=== PATIENT | male | born 1955 | race Caucasian/White ===

== ENCOUNTER 2016-08-13 11:01 | Inpatient (IN) | payer OTHER ==
[2016-08-13 11:17] VITALS: BMI 27.7
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
[2016-08-13] MEDS ORDERED: ACETAMINOPHEN 325 MG TABLET (FP) PO PRN (15:01)
[2016-08-13] MEDS ORDERED: MAG HYDROX/AL HYDROX/SIMETH 30 ML UNIT-DOSE CUP PO PRN (15:01)
[2016-08-13] MEDS ORDERED: NICOTINE POLACRILEX 2 MG GUM BUC PRN (15:01)
[2016-08-13] MEDS ORDERED: MAGNESIUM HYDROX 2400MG/30ML ORAL SUSPENSION 30 ML CUP PO PRN (15:01)
[2016-08-13] MEDS ORDERED: LOPERAMIDE HCL 2 MG CAPSULE PO PRN (15:01)
[2016-08-13] MEDS ORDERED: MENTHOL/PHENOL 1 EACH UD MM PRN (15:01)
[2016-08-13] MEDS ORDERED: diphenhydrAMINE HCL 50 MG CAPSULE PO PRN (15:01)
[2016-08-13] MEDS ORDERED: hydrOXYzine PAMOATE 25 MG CAPSULE (FP) PO PRN (15:01)
[2016-08-13] MEDS ORDERED: P-EPHED 60MG/TRIPROLIDI 2.5MG TABLET PO PRN (15:01)
[2016-08-13] MEDS ORDERED: MAGNESIUM CITRATE 300 ML BOTTLE PO PRN (15:01)
[2016-08-13] MEDS ORDERED: IBUPROFEN 400 MG TABLET (FP) PO PRN (15:01)
[2016-08-13] MEDS ORDERED: guaiFENesin/D-METHORPHAN HB 10 ML UNIT-DOSE CUPS PO PRN (15:01)
[2016-08-13 19:40] LABS: URINE APPEARANCE CLEAR; URINE BILIRUBIN NEGATIVE (NEGATIVE); URINE BLOOD NEGATIVE (NEGATIVE); URINE COLOR COLORLESS; URINE GLUCOSE (UA) NEGATIVE (NEGATIVE); URINE KETONE NEGATIVE (NEGATIVE); URINE LEUK ESTERASE NEGATIVE (NEGATIVE); URINE NITRITE NEGATIVE (NEGATIVE); URINE PROTEIN NEGATIVE (NEGATIVE); URINE UROBILINOGEN NEGATIVE E.U./dl (0.2-1.0)
[2016-08-13 19:41] LABS: MCH 32.2 pg (25.7-33.7); MCHC 33.8 g/dl (32.0-35.9); MEAN CELL VOLUME 95.1 fl (80-96); MEAN PLT VOLUME 8.3 fl (7.5-11.1); PLATELET COUNT 232 K/MM3 (134-434); RDW 14.6 % (11.9-15.9); WHITE BLOOD COUNT 4.9 K/mm3 (4.0-10.0)
[2016-08-13 19:56] LABS: ALBUMIN 4.4 g/dl (3.4-5.0); ANION GAP 10 (8-16); CALCIUM 8.5 mg/dL (8.5-10.1); CO2 26 mmol/L (21-32); CREATININE 1.1 mg/dL (0.7-1.3); GLUCOSE,RANDOM 101 mg/dL (74-106); SGOT/AST 18 U/L (15-37); SGPT/ALT 19 U/L (12-78)
[2016-08-13 19:57] LABS: ALK PHOS 115 U/L (45-117); TOT PROT 6.9 g/dl (6.4-8.2)
[2016-08-13] MEDS: PATIENT'S OWN MEDICATION (NON-FORMULARY) (Pravastatin Sodium 40 MG) PO SCH (21:35)
[2016-08-13] MEDS: THIAMINE HCL 100 MG TABLET (FP) PO SCH (21:35)
[2016-08-13] MEDS: QUEtiapine FUMARATE 25 MG TABLET (FP) PO SCH (21:36)
[2016-08-13] MEDS: GEMFIBROZIL 600 MG TABLET (FP) PO SCH (21:36)
[2016-08-13] MEDS: NAPROXEN 500 MG TABLET (FP) PO SCH (21:37)
[2016-08-14] MEDS ORDERED: METHADONE HCL 10 MG TABLET ONE (04:05)
[2016-08-14] MEDS ORDERED: METHADONE HCL 40 MG DISPERSABLE TABLET ONE (04:05)
[2016-08-14] MEDS ORDERED: METHADONE HCL 5 MG TABLET ONE (04:06)
[2016-08-14] MEDS ORDERED: METHADONE HCL 10 MG TABLET PO SCH (06:00)
[2016-08-14] MEDS: METHADONE 40 MG, METHADONE 10 MG, METHADONE 5 MG PO SCH (06:26)
--- NOTE | 2016-08-14 06:38 | HP ---
Psychiatrist Admission - Data Date of interview: 08/14/16 Admission source: [facility] Identifying data: This is the first [facility] admission for this 60 years old male, unemployed on public assistance, homeless Medical History: Significant for Asthma, Hyperlipidemia, Seizure Disorder and S/ P skin graft for plastic surgery of face. Patient is on methadone 55 mg/day. Smokes 5 cigarettes daily Psychiatric History: Reports being diagnosed with Bipolar Disorder 7-8 years ago. Reports 3 previous psychiatric admissions to [facility] in 1998, [facility] in 2006- and most recenly in 2013 to [facility]. Reports that he currently sees a psychiatrist at [facility] and he isprescribed Zoloft 50 mg po daily & Seroquel 25 mg po HS. Denies history of SI/HI. At present, reports feeling depressed because he is in this place. Denies experiencing psychotic, manic symptoms as well as SI/HI Physical/Sexual Abuse/Trauma History: Denies history of emotional, physical or sexual abuse as well as DV relationship Additional Comment: Reports history of multiple arrests including 3 felony convictions. Denies being on parole/probation at present Vital Signs: Vital Signs - 24 hr 08/13/16 08/14/16 08/14/16 11:14 00:30 03:30 Temperature 98.1 F Pulse Rate 73 Respiratory 18 20 20 Rate Blood Pressure 132/75 Allergies/Adverse Reactions: Allergies Allergy/AdvReac Type Severity Reaction Status Date / Time egg Allergy Severe Hives Verified 08/13/16 12:04 No Known Drug Allergies Allergy Verified 08/13/16 17:03 NKDA Allergy Uncoded 08/13/16 12:04 Date of last physical exam: 08/13/16 Concur with the findings of this exam: Yes - Substance Abuse/Tx History Hx Alcohol Use: No Hx Substance Use: Yes Substance Use Type: Opiates (Started using morphine at age 15, consumes 20 mg daily. Last used on 08/12/16) Hx Substance Use Treatment: Yes (One previous inpt detox @ [facility]. Attends [facility] currently) - Admission Criteria Previous failed treatment: No Poor recovery environment: Yes Comorbidities: Yes Lacks judgement: Yes Mental Status Exam - Mental Status Exam Alert and Oriented to: Time, Place, Person Cognitive Function: Fair Patient Appearance: Well Groomed Mood: Depressed Affect: Normal Range Patient Behavior: Cooperative Speech Pattern: Clear Voice Loudness: Normal Thought Process: Intact Thought Disorder: Not Present Hallucinations: Denies Suicidal Ideation: Denies Homicidal Ideation: Denies Insight/Judgement: Fair Sleep: Poorly Appetite: Good Muscle strength/Tone: Normal Gait/Station: Normal Psychiatric Findings - Problem List ([place] 1, 2,3) (1) Opioid dependence Current Visit: Yes Status: Acute (2) Bipolar I disorder, most recent episode (or current) mixed, in partial or unspecified remission Current Visit: No Status: Acute (3) Nicotine dependence Current Visit: Yes Status: Acute (4) Opioid dependence on agonist therapy Current Visit: Yes Status: Acute (5) History of chronic pain Current Visit: Yes Status: Chronic (6) Hypercholesterolemia Current Visit: Yes Status: Chronic - Initial Treatment Plan Initial Treatment Plan: 1) Continue Zoloft 50 mg po daily & Seroquel 25 mg po HS. 2) Monitor progress
[2016-08-14] MEDS ORDERED: PT OWN MED DRAWER 7, Y5N ONE ×4 (08:55→23:05)
--- NOTE | 2016-08-14 10:11 | EKG ---
Test Reason : Blood Pressure : / mmHG Vent. Rate : 067 BPM Atrial Rate : 067 BPM P-R Int : 158 ms QRS Dur : 082 ms QT Int : 392 ms P-R-T Axes : 046 028 036 degrees QTc Int : 414 ms NORMAL SINUS RHYTHM POSSIBLE LEFT ATRIAL ENLARGEMENT BORDERLINE ECG NO PREVIOUS ECGS AVAILABLE Confirmed by SHU BOWIE, CARA ([id number]) on 08/14/2016 10:10:53 AM Referred By: Benjamín Terry Confirmed By:CARA IRELAND MD
[2016-08-14] MEDS: PRENATAL VITAMINS W/ FOLIC ACID TABLET (FP) PO SCH (10:15)
[2016-08-14] MEDS: NAPROXEN 500 MG TABLET (FP) PO SCH ×2 (10:15→22:50)
[2016-08-14] MEDS: GEMFIBROZIL 600 MG TABLET (FP) PO SCH ×2 (10:15→22:50)
[2016-08-14] MEDS: SERTRALINE HCL 50 MG TABLET (FP) PO SCH (10:15)
[2016-08-14] MEDS: NICOTINE 14 MG/24 HOURS TOPICAL PATCH TD SCH (10:15)
[2016-08-14 12:14] LABS: HIV 1 & 2 AB NEGATIVE; HIV 1 AGp24 NEGATIVE
[2016-08-14] MEDS ORDERED: BISACODYL 5 MG TABLET.DR (FP) PO ONE ×2 (14:56→16:00)
[2016-08-14] MEDS: ACETAMINOPHEN 500 MG TABLET (FP) PO PRN ×2 (15:57→21:44)
[2016-08-14] MEDS: ALBUTEROL SO4 6.7 GM HFA INHALER IH PRN (17:54)
[2016-08-14] MEDS: THIAMINE HCL 100 MG TABLET (FP) PO SCH (21:42)
[2016-08-14] MEDS: QUEtiapine FUMARATE 25 MG TABLET (FP) PO SCH (22:50)
[2016-08-14] MEDS: PATIENT'S OWN MEDICATION (NON-FORMULARY) (Pravastatin Sodium 40 MG) PO SCH (22:50)
[2016-08-15] MEDS ORDERED: METHADONE HCL 10 MG TABLET ONE (04:01)
[2016-08-15] MEDS ORDERED: METHADONE HCL 40 MG DISPERSABLE TABLET ONE (04:02)
[2016-08-15] MEDS ORDERED: METHADONE HCL 5 MG TABLET ONE (04:02)
[2016-08-15] MEDS: METHADONE 40 MG, METHADONE 10 MG, METHADONE 5 MG PO SCH (06:19)
[2016-08-15] MEDS: ACETAMINOPHEN 500 MG TABLET (FP) PO PRN ×3 (07:52→21:09)
[2016-08-15] MEDS ORDERED: PT OWN MED DRAWER 7, Y5N ONE ×5 (08:42→21:09)
[2016-08-15] MEDS: GEMFIBROZIL 600 MG TABLET (FP) PO SCH ×2 (09:48→22:44)
[2016-08-15] MEDS: SERTRALINE HCL 50 MG TABLET (FP) PO SCH (09:48)
[2016-08-15] MEDS: NAPROXEN 500 MG TABLET (FP) PO SCH ×2 (09:48→21:09)
[2016-08-15] MEDS: PRENATAL VITAMINS W/ FOLIC ACID TABLET (FP) PO SCH (09:48)
[2016-08-15] MEDS: FERROUS SO4 325 MG TABLET (FP) PO SCH (09:48)
[2016-08-15] MEDS: NICOTINE 14 MG/24 HOURS TOPICAL PATCH TD SCH (09:50)
[2016-08-15] MEDS: THIAMINE HCL 100 MG TABLET (FP) PO SCH (21:09)
[2016-08-15] MEDS: PATIENT'S OWN MEDICATION (NON-FORMULARY) (Pravastatin Sodium 40 MG) PO SCH (22:45)
[2016-08-15] MEDS: QUEtiapine FUMARATE 25 MG TABLET (FP) PO SCH (22:45)
[2016-08-16] MEDS ORDERED: METHADONE HCL 40 MG DISPERSABLE TABLET ONE (04:03)
[2016-08-16] MEDS ORDERED: METHADONE HCL 10 MG TABLET ONE (04:03)
[2016-08-16] MEDS ORDERED: METHADONE HCL 5 MG TABLET ONE (04:03)
[2016-08-16] MEDS: ACETAMINOPHEN 500 MG TABLET (FP) PO PRN ×2 (06:04→21:02)
[2016-08-16] MEDS: METHADONE 40 MG, METHADONE 10 MG, METHADONE 5 MG PO SCH (06:05)
[2016-08-16] MEDS: PRENATAL VITAMINS W/ FOLIC ACID TABLET (FP) PO SCH (09:49)
[2016-08-16] MEDS: NAPROXEN 500 MG TABLET (FP) PO SCH ×2 (09:49→21:02)
[2016-08-16] MEDS: SERTRALINE HCL 50 MG TABLET (FP) PO SCH (09:49)
[2016-08-16] MEDS: FERROUS SO4 325 MG TABLET (FP) PO SCH (09:49)
[2016-08-16] MEDS: GEMFIBROZIL 600 MG TABLET (FP) PO SCH ×2 (09:50→21:02)
[2016-08-16] MEDS: NICOTINE 14 MG/24 HOURS TOPICAL PATCH TD SCH (09:51)
[2016-08-16] MEDS: ALBUTEROL SO4 6.7 GM HFA INHALER IH PRN (09:52)
[2016-08-16] MEDS ORDERED: PT OWN MED DRAWER 7, Y5N ONE ×2 (09:52→19:15)
[2016-08-16] MEDS: HYDROCORTISONE 2.5% TOPICAL CREAM 30 GM TUBE TP SCH ×2 (16:45→21:02)
[2016-08-16] MEDS: PATIENT'S OWN MEDICATION (NON-FORMULARY) (Pravastatin Sodium 40 MG) PO SCH (21:02)
[2016-08-16] MEDS: THIAMINE HCL 100 MG TABLET (FP) PO SCH (21:02)
[2016-08-16] MEDS: QUEtiapine FUMARATE 25 MG TABLET (FP) PO SCH (21:03)
[2016-08-17] MEDS ORDERED: METHADONE HCL 10 MG TABLET ONE (05:40)
[2016-08-17] MEDS ORDERED: METHADONE HCL 5 MG TABLET ONE (05:40)
[2016-08-17] MEDS ORDERED: METHADONE HCL 40 MG DISPERSABLE TABLET ONE (05:40)
[2016-08-17] MEDS: ACETAMINOPHEN 500 MG TABLET (FP) PO PRN ×3 (06:52→21:48)
[2016-08-17] MEDS: METHADONE 40 MG, METHADONE 10 MG, METHADONE 5 MG PO SCH (06:52)
[2016-08-17] MEDS ORDERED: PT OWN MED DRAWER 7, Y5N ONE ×2 (08:51→21:47)
[2016-08-17] MEDS: HYDROCORTISONE 2.5% TOPICAL CREAM 30 GM TUBE TP SCH ×2 (09:38→21:49)
[2016-08-17] MEDS: PRENATAL VITAMINS W/ FOLIC ACID TABLET (FP) PO SCH (09:38)
[2016-08-17] MEDS: NICOTINE 14 MG/24 HOURS TOPICAL PATCH TD SCH (09:38)
[2016-08-17] MEDS: NAPROXEN 500 MG TABLET (FP) PO SCH ×2 (09:39→21:47)
[2016-08-17] MEDS: SERTRALINE HCL 50 MG TABLET (FP) PO SCH (09:39)
[2016-08-17] MEDS: GEMFIBROZIL 600 MG TABLET (FP) PO SCH ×2 (09:40→21:46)
[2016-08-17] MEDS: FERROUS SO4 325 MG TABLET (FP) PO SCH (09:41)
[2016-08-17] MEDS: QUEtiapine FUMARATE 25 MG TABLET (FP) PO SCH (21:47)
[2016-08-17] MEDS: PATIENT'S OWN MEDICATION (NON-FORMULARY) (Pravastatin Sodium 40 MG) PO SCH (21:47)
[2016-08-17] MEDS: THIAMINE HCL 100 MG TABLET (FP) PO SCH (21:49)
[2016-08-18] MEDS ORDERED: METHADONE HCL 5 MG TABLET ONE (05:28)
[2016-08-18] MEDS ORDERED: METHADONE HCL 10 MG TABLET ONE (05:28)
[2016-08-18] MEDS ORDERED: METHADONE HCL 40 MG DISPERSABLE TABLET ONE (05:28)
[2016-08-18] MEDS: ACETAMINOPHEN 500 MG TABLET (FP) PO PRN ×3 (06:38→21:25)
[2016-08-18] MEDS: METHADONE 40 MG, METHADONE 10 MG, METHADONE 5 MG PO SCH (06:38)
[2016-08-18] MEDS ORDERED: PT OWN MED DRAWER 7, Y5N ONE ×3 (07:01→21:25)
[2016-08-18] MEDS: PRENATAL VITAMINS W/ FOLIC ACID TABLET (FP) PO SCH (09:51)
[2016-08-18] MEDS: GEMFIBROZIL 600 MG TABLET (FP) PO SCH ×2 (09:51→21:23)
[2016-08-18] MEDS: FERROUS SO4 325 MG TABLET (FP) PO SCH (09:51)
[2016-08-18] MEDS: NICOTINE 14 MG/24 HOURS TOPICAL PATCH TD SCH (09:52)
[2016-08-18] MEDS: SERTRALINE HCL 50 MG TABLET (FP) PO SCH (09:52)
[2016-08-18] MEDS: HYDROCORTISONE 2.5% TOPICAL CREAM 30 GM TUBE TP SCH ×2 (09:52→22:46)
[2016-08-18] MEDS: NAPROXEN 500 MG TABLET (FP) PO SCH ×2 (09:52→21:23)
[2016-08-18] MEDS: PATIENT'S OWN MEDICATION (NON-FORMULARY) (Pravastatin Sodium 40 MG) PO SCH (21:24)
[2016-08-18] MEDS: QUEtiapine FUMARATE 25 MG TABLET (FP) PO SCH (21:24)
[2016-08-18] MEDS: THIAMINE HCL 100 MG TABLET (FP) PO SCH (21:24)
[2016-08-19] MEDS ORDERED: METHADONE HCL 10 MG TABLET ONE (05:17)
[2016-08-19] MEDS ORDERED: METHADONE HCL 40 MG DISPERSABLE TABLET ONE (05:18)
[2016-08-19] MEDS ORDERED: METHADONE HCL 5 MG TABLET ONE (05:18)
[2016-08-19] MEDS: ACETAMINOPHEN 500 MG TABLET (FP) PO PRN ×2 (06:29→22:27)
[2016-08-19] MEDS: METHADONE 40 MG, METHADONE 10 MG, METHADONE 5 MG PO SCH (06:30)
[2016-08-19] MEDS ORDERED: PT OWN MED DRAWER 7, Y5N ONE ×3 (08:39→20:12)
[2016-08-19] MEDS: FERROUS SO4 325 MG TABLET (FP) PO SCH (09:54)
[2016-08-19] MEDS: SERTRALINE HCL 50 MG TABLET (FP) PO SCH (09:54)
[2016-08-19] MEDS: PRENATAL VITAMINS W/ FOLIC ACID TABLET (FP) PO SCH (09:54)
[2016-08-19] MEDS: NAPROXEN 500 MG TABLET (FP) PO SCH ×2 (09:54→22:28)
[2016-08-19] MEDS: NICOTINE 14 MG/24 HOURS TOPICAL PATCH TD SCH (09:55)
[2016-08-19] MEDS: GEMFIBROZIL 600 MG TABLET (FP) PO SCH ×2 (09:55→22:27)
[2016-08-19] MEDS: HYDROCORTISONE 2.5% TOPICAL CREAM 30 GM TUBE TP SCH ×2 (09:56→23:58)
[2016-08-19] MEDS: DOCUSATE SODIUM 100 MG CAPSULE (FP) PO PRN (22:27)
[2016-08-19] MEDS: THIAMINE HCL 100 MG TABLET (FP) PO SCH (22:28)
[2016-08-19] MEDS: QUEtiapine FUMARATE 25 MG TABLET (FP) PO SCH (22:28)
[2016-08-19] MEDS: PATIENT'S OWN MEDICATION (NON-FORMULARY) (Pravastatin Sodium 40 MG) PO SCH (22:28)
[2016-08-20] MEDS ORDERED: METHADONE HCL 40 MG DISPERSABLE TABLET ONE (04:12)
[2016-08-20] MEDS ORDERED: METHADONE HCL 10 MG TABLET ONE (04:12)
[2016-08-20] MEDS ORDERED: METHADONE HCL 5 MG TABLET ONE (04:12)
[2016-08-20] MEDS: METHADONE 40 MG, METHADONE 10 MG, METHADONE 5 MG PO SCH (06:03)
[2016-08-20] MEDS ORDERED: PT OWN MED DRAWER 7, Y5N ONE ×3 (08:52→21:30)
[2016-08-20] MEDS: ACETAMINOPHEN 500 MG TABLET (FP) PO PRN ×2 (09:58→20:36)
[2016-08-20] MEDS: PRENATAL VITAMINS W/ FOLIC ACID TABLET (FP) PO SCH (09:59)
[2016-08-20] MEDS: SERTRALINE HCL 50 MG TABLET (FP) PO SCH (10:00)
[2016-08-20] MEDS: FERROUS SO4 325 MG TABLET (FP) PO SCH (10:00)
[2016-08-20] MEDS: HYDROCORTISONE 2.5% TOPICAL CREAM 30 GM TUBE TP SCH ×2 (10:00→22:47)
[2016-08-20] MEDS: NAPROXEN 500 MG TABLET (FP) PO SCH ×2 (10:01→21:29)
[2016-08-20] MEDS: GEMFIBROZIL 600 MG TABLET (FP) PO SCH ×2 (10:01→21:29)
[2016-08-20] MEDS: NICOTINE 14 MG/24 HOURS TOPICAL PATCH TD SCH (10:03)
[2016-08-20] MEDS: ALBUTEROL SO4 6.7 GM HFA INHALER IH PRN (10:04)
[2016-08-20] MEDS: QUEtiapine FUMARATE 25 MG TABLET (FP) PO SCH (21:29)
[2016-08-20] MEDS: PATIENT'S OWN MEDICATION (NON-FORMULARY) (Pravastatin Sodium 40 MG) PO SCH (21:29)
[2016-08-20] MEDS: THIAMINE HCL 100 MG TABLET (FP) PO SCH (21:30)
[2016-08-21] MEDS ORDERED: METHADONE HCL 10 MG TABLET ONE (04:03)
[2016-08-21] MEDS ORDERED: METHADONE HCL 5 MG TABLET ONE (04:03)
[2016-08-21] MEDS ORDERED: METHADONE HCL 40 MG DISPERSABLE TABLET ONE (04:03)
[2016-08-21] MEDS: METHADONE 40 MG, METHADONE 10 MG, METHADONE 5 MG PO SCH (05:58)
[2016-08-21] MEDS: ACETAMINOPHEN 500 MG TABLET (FP) PO PRN ×2 (06:13→21:17)
[2016-08-21] MEDS: ALBUTEROL SO4 6.7 GM HFA INHALER IH PRN (06:14)
[2016-08-21] MEDS ORDERED: PT OWN MED DRAWER 7, Y5N ONE ×2 (08:45→21:17)
[2016-08-21] MEDS: SERTRALINE HCL 50 MG TABLET (FP) PO SCH (09:45)
[2016-08-21] MEDS: FERROUS SO4 325 MG TABLET (FP) PO SCH (09:45)
[2016-08-21] MEDS: PRENATAL VITAMINS W/ FOLIC ACID TABLET (FP) PO SCH (09:45)
[2016-08-21] MEDS: HYDROCORTISONE 2.5% TOPICAL CREAM 30 GM TUBE TP SCH ×2 (09:45→23:17)
[2016-08-21] MEDS: GEMFIBROZIL 600 MG TABLET (FP) PO SCH ×2 (09:46→21:16)
[2016-08-21] MEDS: NAPROXEN 500 MG TABLET (FP) PO SCH ×2 (09:46→21:16)
[2016-08-21] MEDS: NICOTINE 14 MG/24 HOURS TOPICAL PATCH TD SCH (10:27)
[2016-08-21] MEDS: PATIENT'S OWN MEDICATION (NON-FORMULARY) (Pravastatin Sodium 40 MG) PO SCH (21:16)
[2016-08-21] MEDS: QUEtiapine FUMARATE 25 MG TABLET (FP) PO SCH (21:17)
[2016-08-21] MEDS: THIAMINE HCL 100 MG TABLET (FP) PO SCH (21:17)
[2016-08-22] MEDS ORDERED: METHADONE HCL 40 MG DISPERSABLE TABLET ONE (03:20)
[2016-08-22] MEDS ORDERED: METHADONE HCL 10 MG TABLET ONE (03:20)
[2016-08-22] MEDS ORDERED: METHADONE HCL 5 MG TABLET ONE (03:20)
[2016-08-22] MEDS: ACETAMINOPHEN 500 MG TABLET (FP) PO PRN ×3 (06:07→21:15)
[2016-08-22] MEDS: METHADONE 40 MG, METHADONE 10 MG, METHADONE 5 MG PO SCH (06:07)
[2016-08-22] MEDS ORDERED: PT OWN MED DRAWER 7, Y5N ONE ×3 (08:27→21:17)
[2016-08-22] MEDS: FERROUS SO4 325 MG TABLET (FP) PO SCH (09:50)
[2016-08-22] MEDS: PRENATAL VITAMINS W/ FOLIC ACID TABLET (FP) PO SCH (09:50)
[2016-08-22] MEDS: NAPROXEN 500 MG TABLET (FP) PO SCH ×2 (09:50→21:16)
[2016-08-22] MEDS: HYDROCORTISONE 2.5% TOPICAL CREAM 30 GM TUBE TP SCH ×2 (09:50→21:18)
[2016-08-22] MEDS: SERTRALINE HCL 50 MG TABLET (FP) PO SCH (09:51)
[2016-08-22] MEDS: GEMFIBROZIL 600 MG TABLET (FP) PO SCH ×2 (09:51→21:16)
[2016-08-22] MEDS: NICOTINE 14 MG/24 HOURS TOPICAL PATCH TD SCH (09:51)
[2016-08-22] MEDS: THIAMINE HCL 100 MG TABLET (FP) PO SCH (21:15)
[2016-08-22] MEDS: QUEtiapine FUMARATE 25 MG TABLET (FP) PO SCH (21:16)
[2016-08-22] MEDS: PATIENT'S OWN MEDICATION (NON-FORMULARY) (Pravastatin Sodium 40 MG) PO SCH (21:16)
[2016-08-22] MEDS: DOCUSATE SODIUM 100 MG CAPSULE (FP) PO PRN (21:17)
[2016-08-22] MEDS: BACITRACIN 0.9 GM PACKET TP SCH (21:18)
[2016-08-23] MEDS ORDERED: METHADONE HCL 40 MG DISPERSABLE TABLET ONE (04:11)
[2016-08-23] MEDS ORDERED: METHADONE HCL 10 MG TABLET ONE (04:11)
[2016-08-23] MEDS ORDERED: METHADONE HCL 5 MG TABLET ONE (04:12)
[2016-08-23] MEDS: ACETAMINOPHEN 500 MG TABLET (FP) PO PRN ×2 (06:08→17:57)
[2016-08-23] MEDS: ALBUTEROL SO4 6.7 GM HFA INHALER IH PRN (06:08)
[2016-08-23] MEDS: METHADONE 40 MG, METHADONE 10 MG, METHADONE 5 MG PO SCH (06:09)
[2016-08-23] MEDS: GEMFIBROZIL 600 MG TABLET (FP) PO SCH ×2 (09:42→21:37)
[2016-08-23] MEDS: NAPROXEN 500 MG TABLET (FP) PO SCH ×2 (09:42→21:37)
[2016-08-23] MEDS: HYDROCORTISONE 2.5% TOPICAL CREAM 30 GM TUBE TP SCH ×2 (09:43→21:39)
[2016-08-23] MEDS: FERROUS SO4 325 MG TABLET (FP) PO SCH (09:43)
[2016-08-23] MEDS: SERTRALINE HCL 50 MG TABLET (FP) PO SCH (09:43)
[2016-08-23] MEDS: PRENATAL VITAMINS W/ FOLIC ACID TABLET (FP) PO SCH (09:43)
[2016-08-23] MEDS: NICOTINE 14 MG/24 HOURS TOPICAL PATCH TD SCH (09:43)
[2016-08-23] MEDS: BACITRACIN 0.9 GM PACKET TP SCH ×2 (09:43→21:38)
[2016-08-23] MEDS: THIAMINE HCL 100 MG TABLET (FP) PO SCH (21:37)
[2016-08-23] MEDS: PATIENT'S OWN MEDICATION (NON-FORMULARY) (Pravastatin Sodium 40 MG) PO SCH (21:38)
[2016-08-23] MEDS ORDERED: PT OWN MED DRAWER 7, Y5N ONE (21:38)
[2016-08-23] MEDS: QUEtiapine FUMARATE 25 MG TABLET (FP) PO SCH (21:38)
[2016-08-24] MEDS ORDERED: METHADONE HCL 40 MG DISPERSABLE TABLET ONE (04:03)
[2016-08-24] MEDS ORDERED: METHADONE HCL 10 MG TABLET ONE (04:03)
[2016-08-24] MEDS ORDERED: METHADONE HCL 5 MG TABLET ONE (04:04)
[2016-08-24] MEDS: ACETAMINOPHEN 500 MG TABLET (FP) PO PRN ×3 (06:07→21:37)
[2016-08-24] MEDS: METHADONE 40 MG, METHADONE 10 MG, METHADONE 5 MG PO SCH (06:08)
[2016-08-24] MEDS: NAPROXEN 500 MG TABLET (FP) PO SCH ×2 (09:46→21:37)
[2016-08-24] MEDS: SERTRALINE HCL 50 MG TABLET (FP) PO SCH (09:46)
[2016-08-24] MEDS: BACITRACIN 0.9 GM PACKET TP SCH ×2 (09:46→21:37)
[2016-08-24] MEDS: HYDROCORTISONE 2.5% TOPICAL CREAM 30 GM TUBE TP SCH ×2 (09:46→21:37)
[2016-08-24] MEDS: GEMFIBROZIL 600 MG TABLET (FP) PO SCH ×2 (09:46→21:36)
[2016-08-24] MEDS: PRENATAL VITAMINS W/ FOLIC ACID TABLET (FP) PO SCH (09:46)
[2016-08-24] MEDS: FERROUS SO4 325 MG TABLET (FP) PO SCH (09:46)
[2016-08-24] MEDS: DOCUSATE SODIUM 100 MG CAPSULE (FP) PO PRN (09:48)
[2016-08-24] MEDS: ALBUTEROL SO4 6.7 GM HFA INHALER IH PRN ×2 (09:49→21:39)
[2016-08-24] MEDS: NICOTINE 14 MG/24 HOURS TOPICAL PATCH TD SCH (10:33)
[2016-08-24] MEDS ORDERED: PT OWN MED DRAWER 7, Y5N ONE (19:08)
[2016-08-24] MEDS: PATIENT'S OWN MEDICATION (NON-FORMULARY) (Pravastatin Sodium 40 MG) PO SCH (21:36)
[2016-08-24] MEDS: QUEtiapine FUMARATE 25 MG TABLET (FP) PO SCH (21:36)
[2016-08-24] MEDS: THIAMINE HCL 100 MG TABLET (FP) PO SCH (21:36)
[2016-08-25] MEDS ORDERED: METHADONE HCL 10 MG TABLET ONE (04:05)
[2016-08-25] MEDS ORDERED: METHADONE HCL 40 MG DISPERSABLE TABLET ONE (04:05)
[2016-08-25] MEDS ORDERED: METHADONE HCL 5 MG TABLET ONE (04:06)
[2016-08-25] MEDS: ACETAMINOPHEN 500 MG TABLET (FP) PO PRN ×2 (06:12→21:50)
[2016-08-25] MEDS: METHADONE 40 MG, METHADONE 10 MG, METHADONE 5 MG PO SCH (06:13)
[2016-08-25] MEDS ORDERED: PT OWN MED DRAWER 7, Y5N ONE ×4 (08:42→21:51)
[2016-08-25] MEDS: ALBUTEROL SO4 6.7 GM HFA INHALER IH PRN (09:56)
[2016-08-25] MEDS: SERTRALINE HCL 50 MG TABLET (FP) PO SCH (09:56)
[2016-08-25] MEDS: HYDROCORTISONE 2.5% TOPICAL CREAM 30 GM TUBE TP SCH ×2 (09:57→21:48)
[2016-08-25] MEDS: BACITRACIN 0.9 GM PACKET TP SCH ×2 (09:57→21:48)
[2016-08-25] MEDS: FERROUS SO4 325 MG TABLET (FP) PO SCH (09:57)
[2016-08-25] MEDS: NAPROXEN 500 MG TABLET (FP) PO SCH ×2 (09:57→21:48)
[2016-08-25] MEDS: GEMFIBROZIL 600 MG TABLET (FP) PO SCH ×2 (09:57→21:49)
[2016-08-25] MEDS: PRENATAL VITAMINS W/ FOLIC ACID TABLET (FP) PO SCH (09:57)
[2016-08-25] MEDS: DOCUSATE SODIUM 100 MG CAPSULE (FP) PO PRN (09:58)
[2016-08-25] MEDS: NICOTINE 14 MG/24 HOURS TOPICAL PATCH TD SCH (09:58)
[2016-08-25] MEDS: QUEtiapine FUMARATE 25 MG TABLET (FP) PO SCH (21:48)
[2016-08-25] MEDS: THIAMINE HCL 100 MG TABLET (FP) PO SCH (21:48)
[2016-08-25] MEDS: PATIENT'S OWN MEDICATION (NON-FORMULARY) (Pravastatin Sodium 40 MG) PO SCH (21:49)
[2016-08-26] MEDS ORDERED: METHADONE HCL 40 MG DISPERSABLE TABLET ONE (05:37)
[2016-08-26] MEDS ORDERED: METHADONE HCL 5 MG TABLET ONE (05:37)
[2016-08-26] MEDS ORDERED: METHADONE HCL 10 MG TABLET ONE (05:37)
[2016-08-26] MEDS ORDERED: METHADONE HCL 10 MG TABLET PO SCH (06:00)
[2016-08-26] MEDS: ACETAMINOPHEN 500 MG TABLET (FP) PO PRN ×2 (06:47→21:34)
[2016-08-26] MEDS: METHADONE 40 MG, METHADONE 10 MG, METHADONE 5 MG PO SCH (06:47)
[2016-08-26] MEDS: FERROUS SO4 325 MG TABLET (FP) PO SCH (10:07)
[2016-08-26] MEDS: PRENATAL VITAMINS W/ FOLIC ACID TABLET (FP) PO SCH (10:07)
[2016-08-26] MEDS: NICOTINE 14 MG/24 HOURS TOPICAL PATCH TD SCH (10:07)
[2016-08-26] MEDS: SERTRALINE HCL 50 MG TABLET (FP) PO SCH (10:07)
[2016-08-26] MEDS: GEMFIBROZIL 600 MG TABLET (FP) PO SCH ×2 (10:10→17:12)
[2016-08-26] MEDS ORDERED: PT OWN MED DRAWER 7, Y5N ONE ×2 (10:11→20:31)
[2016-08-26] MEDS: NAPROXEN 500 MG TABLET (FP) PO SCH ×2 (10:12→21:34)
[2016-08-26] MEDS: HYDROCORTISONE 2.5% TOPICAL CREAM 30 GM TUBE TP SCH ×2 (10:13→21:43)
[2016-08-26] MEDS: DOCUSATE SODIUM 100 MG CAPSULE (FP) PO PRN (10:15)
[2016-08-26] MEDS: BACITRACIN 0.9 GM PACKET TP SCH ×2 (10:37→21:33)
[2016-08-26] MEDS: THIAMINE HCL 100 MG TABLET (FP) PO SCH (21:33)
[2016-08-26] MEDS: QUEtiapine FUMARATE 25 MG TABLET (FP) PO SCH (21:33)
[2016-08-26] MEDS: PATIENT'S OWN MEDICATION (NON-FORMULARY) (Pravastatin Sodium 40 MG) PO SCH (21:34)
[2016-08-27] MEDS ORDERED: METHADONE HCL 5 MG TABLET ONE (04:04)
[2016-08-27] MEDS ORDERED: METHADONE HCL 10 MG TABLET ONE (04:04)
[2016-08-27] MEDS ORDERED: METHADONE HCL 40 MG DISPERSABLE TABLET ONE (04:04)
[2016-08-27] MEDS: ACETAMINOPHEN 500 MG TABLET (FP) PO PRN ×2 (06:17→21:54)
[2016-08-27] MEDS: METHADONE 40 MG, METHADONE 10 MG, METHADONE 5 MG PO SCH (06:19)
[2016-08-27] MEDS: GEMFIBROZIL 600 MG TABLET (FP) PO SCH ×2 (06:39→17:09)
[2016-08-27] MEDS: SERTRALINE HCL 50 MG TABLET (FP) PO SCH (09:39)
[2016-08-27] MEDS: BACITRACIN 0.9 GM PACKET TP SCH ×2 (09:39→23:32)
[2016-08-27] MEDS: HYDROCORTISONE 2.5% TOPICAL CREAM 30 GM TUBE TP SCH ×2 (09:39→23:32)
[2016-08-27] MEDS: PRENATAL VITAMINS W/ FOLIC ACID TABLET (FP) PO SCH (09:39)
[2016-08-27] MEDS: FERROUS SO4 325 MG TABLET (FP) PO SCH (09:41)
[2016-08-27] MEDS: NICOTINE 14 MG/24 HOURS TOPICAL PATCH TD SCH (09:43)
[2016-08-27] MEDS: NAPROXEN 500 MG TABLET (FP) PO SCH ×2 (09:43→21:53)
[2016-08-27] MEDS ORDERED: PT OWN MED DRAWER 7, Y5N ONE ×2 (17:09→21:53)
[2016-08-27] MEDS: THIAMINE HCL 100 MG TABLET (FP) PO SCH (21:52)
[2016-08-27] MEDS: PATIENT'S OWN MEDICATION (NON-FORMULARY) (Pravastatin Sodium 40 MG) PO SCH (21:53)
[2016-08-27] MEDS: QUEtiapine FUMARATE 25 MG TABLET (FP) PO SCH (21:53)
[2016-08-28] MEDS ORDERED: METHADONE HCL 5 MG TABLET ONE (04:08)
[2016-08-28] MEDS ORDERED: METHADONE HCL 10 MG TABLET ONE (04:08)
[2016-08-28] MEDS ORDERED: METHADONE HCL 40 MG DISPERSABLE TABLET ONE (04:08)
[2016-08-28] MEDS: ACETAMINOPHEN 500 MG TABLET (FP) PO PRN (06:27)
[2016-08-28] MEDS: METHADONE 40 MG, METHADONE 10 MG, METHADONE 5 MG PO SCH (06:29)
[2016-08-28] MEDS: GEMFIBROZIL 600 MG TABLET (FP) PO SCH ×2 (07:00→16:58)
[2016-08-28] MEDS: BACITRACIN 0.9 GM PACKET TP SCH ×2 (09:51→21:52)
[2016-08-28] MEDS: PRENATAL VITAMINS W/ FOLIC ACID TABLET (FP) PO SCH (09:51)
[2016-08-28] MEDS: FERROUS SO4 325 MG TABLET (FP) PO SCH (09:51)
[2016-08-28] MEDS: SERTRALINE HCL 50 MG TABLET (FP) PO SCH (09:51)
[2016-08-28] MEDS: NAPROXEN 500 MG TABLET (FP) PO SCH ×2 (09:52→21:51)
[2016-08-28] MEDS: NICOTINE 14 MG/24 HOURS TOPICAL PATCH TD SCH (09:52)
[2016-08-28] MEDS: HYDROCORTISONE 2.5% TOPICAL CREAM 30 GM TUBE TP SCH ×2 (09:53→22:27)
[2016-08-28] MEDS: DOCUSATE SODIUM 100 MG CAPSULE (FP) PO PRN (10:42)
[2016-08-28] MEDS ORDERED: PT OWN MED DRAWER 7, Y5N ONE ×4 (14:04→22:48)
[2016-08-28] MEDS: PATIENT'S OWN MEDICATION (NON-FORMULARY) (Pravastatin Sodium 40 MG) PO SCH (21:51)
[2016-08-28] MEDS: QUEtiapine FUMARATE 25 MG TABLET (FP) PO SCH (21:51)
[2016-08-28] MEDS: THIAMINE HCL 100 MG TABLET (FP) PO SCH (21:51)
[2016-08-29] MEDS ORDERED: METHADONE HCL 40 MG DISPERSABLE TABLET ONE (04:12)
[2016-08-29] MEDS ORDERED: METHADONE HCL 10 MG TABLET ONE (04:12)
[2016-08-29] MEDS ORDERED: METHADONE HCL 5 MG TABLET ONE (04:13)
[2016-08-29] MEDS: METHADONE 40 MG, METHADONE 10 MG, METHADONE 5 MG PO SCH (06:06)
[2016-08-29] MEDS: GEMFIBROZIL 600 MG TABLET (FP) PO SCH ×2 (06:07→17:02)
[2016-08-29] MEDS: ACETAMINOPHEN 500 MG TABLET (FP) PO PRN (06:07)
[2016-08-29] MEDS: ALBUTEROL SO4 6.7 GM HFA INHALER IH PRN (06:11)
[2016-08-29] MEDS: NAPROXEN 500 MG TABLET (FP) PO SCH ×2 (09:50→21:43)
[2016-08-29] MEDS: PRENATAL VITAMINS W/ FOLIC ACID TABLET (FP) PO SCH (09:50)
[2016-08-29] MEDS: NICOTINE 14 MG/24 HOURS TOPICAL PATCH TD SCH (09:50)
[2016-08-29] MEDS: FERROUS SO4 325 MG TABLET (FP) PO SCH (09:51)
[2016-08-29] MEDS: SERTRALINE HCL 50 MG TABLET (FP) PO SCH (09:51)
[2016-08-29] MEDS: BACITRACIN 0.9 GM PACKET TP SCH ×2 (09:51→21:44)
[2016-08-29] MEDS ORDERED: PT OWN MED DRAWER 7, Y5N ONE ×3 (09:52→21:44)
[2016-08-29] MEDS: HYDROCORTISONE 2.5% TOPICAL CREAM 30 GM TUBE TP SCH ×2 (09:52→21:44)
--- NOTE | 2016-08-29 10:24 | PN ---
Psychiatric Progress Note Vital Signs: Vital Signs Period Temp Pulse Resp BP Sys/Godfrey Pulse Ox Last 24 Hr 97.3 F 57 18-20 129/65 Date of Session: 08/29/16 Chief Complaint:: Psychiatrist Discharge Note HPI: Patient addressing Opoid Dependence comorbid with Opoid Dependence on Agonist Therapy and Nicotine dependence ROS: Chronic pain, Herperlipidemia Current Medications: Active Medications Generic Name Dose Route Start Last Admin Trade Name Freq PRN Reason Stop Dose Admin Acetaminophen 1,000 mg 08/14/16 14:56 08/29/16 06:07 Tylenol - PO 1,000 mg Q6H PRN Administration PAIN Al Hydroxide/Mg Hydroxide 30 ml 08/13/16 15:01 Mylanta Oral Suspension - PO Q6H PRN DYSPEPSIA Albuterol Sulfate 2 puff 08/13/16 15:03 08/29/16 06:11 Ventolin Hfa Inhaler - IH 2 puff Q4H PRN Administration ASTHMA Bacitracin 0.9 gm 08/22/16 22:00 08/29/16 09:51 Bacitracin - TP 0.9 gm BID BLAYNE Administration Diphenhydramine HCl 50 mg 08/13/16 15:01 Benadryl - PO HSMR1 PRN INSOMNIA Docusate Sodium 200 mg 08/19/16 14:25 08/28/16 10:42 Colace - PO 200 mg BID PRN Administration CONSTIPATION Eucalyptus/Menthol/Phenol/Sorbitol 1 each 08/13/16 15:01 Cepastat Lozenge - MM Q4H PRN SORE THROAT Ferrous Sulfate 325 mg 08/15/16 10:00 08/29/16 09:51 Feosol - PO 325 mg DAILY BLAYNE Administration Gemfibrozil 600 mg 08/26/16 13:31 08/29/16 06:07 Lopid - PO 600 mg BIDAC BLAYNE Administration Guaifenesin 10 ml 08/13/16 15:01 Robitussin Dm - PO Q6H PRN COUGH Hydrocortisone 1 applic 08/16/16 13:00 08/29/16 09:52 Anusol 2.5% Hc Cream - TP 1 applic BID BLAYNE Administration Hydroxyzine Pamoate 25 mg 08/13/16 15:01 08/20/16 09:59 Vistaril - PO 25 mg Q4H PRN Administration AGITATION Loperamide HCl 4 mg 08/13/16 15:01 Imodium - PO Q6H PRN DIARRHEA Magnesium Citrate 300 ml 08/13/16 15:01 Citroma - PO Q48H PRN CONSTIPATION Magnesium Hydroxide 30 ml 08/13/16 15:01 Milk Of Magnesia - PO DAILY PRN CONSTIPATION Methadone HCl 40 mg/ Methadone 55 mg 08/26/16 06:00 08/29/16 06:06 HCl 10 mg/ Methadone HCl 5 mg PO 55 mg DAILY@0600 BLAYNE Administration Naproxen 500 mg 08/13/16 22:00 08/29/16 09:50 Naprosyn - PO 500 mg BID BLAYNE Administration Nicotine 14 mg 08/14/16 10:00 08/28/16 09:52 Nicoderm Patch - TD 14 mg DAILY BLAYNE Administration Nicotine Polacrilex 2 mg 08/13/16 15:01 Nicorette Gum - BUC Q2H PRN NICOTINE REPLACEMENT RX Non-Formulary Medication 40 mg 08/13/16 22:00 08/28/16 21:51 Pravastatin Sodium PO 40 mg HS BLAYNE Administration Multivit/Folic Acid/Iron 1 tab 08/14/16 10:00 08/29/16 09:50 Vitamins (Sjr) - PO 1 tab DAILY BLAYNE Administration Pseudoephedrine/Triprolidine 1 combo 08/13/16 15:01 Actifed - PO TID PRN NASAL CONGESTION Quetiapine Fumarate 25 mg 08/13/16 22:00 08/28/16 21:51 Seroquel - PO 25 mg HS BLAYNE Administration Sertraline HCl 50 mg 08/14/16 10:00 08/29/16 09:51 Zoloft - PO 50 mg DAILY BLAYNE Administration Thiamine HCl 100 mg 08/13/16 22:00 08/28/16 21:51 Vitamin B1 - PO 100 mg HS BLAYNE Administration Current Side Effect: No Lab tests ordered: Yes Lab tests reviewed: Yes Provider note:: Patient will complete this program on 08/30/16. He has met his treatment goals and will continue to address his issues in residential treatment at [facility]. Told expert medical writer that from his participation in this program, he has learned to be patient and not to logan it. He responded well to Zoloft 50 mg po daily & Seroquel 25 mg po HS. Scripts for these medications will be electronically transmitted to [facility] at [address] [place] [address]. He is stable for discharge on 08/30/16 Total face to face time:: 35 Mental Status Exam - Mental Status Exam Alert and Oriented to: Time, Place, Person Cognitive Function: Fair Mood: Hopeful, Euthymic Affect: Appropriate Patient Behavior: Cooperative Speech Pattern: Clear Voice Loudness: Normal, Limited Variation Thought Disorder: Not Present Hallucinations: Denies Suicidal Ideation: Denies Homicidal Ideation: Denies Insight/Judgement: Fair Sleep: Fair Appetite: Good Muscle strength/Tone: Normal Gait/Station: Normal Psychiatric Treatment Plan - Problem List (1) Opioid dependence Current Visit: Yes (2) Bipolar I disorder, most recent episode (or current) mixed, in partial or unspecified remission Current Visit: No (3) Nicotine dependence Current Visit: Yes (4) Opioid dependence on agonist therapy Current Visit: Yes (5) History of chronic pain Current Visit: Yes (6) Hypercholesterolemia Current Visit: Yes Initial treatment plan: Patient will be discharged tomorrow and referred to [facility] for custodial residential treatment
[2016-08-29] MEDS: DOCUSATE SODIUM 100 MG CAPSULE (FP) PO PRN (14:23)
[2016-08-29] MEDS: PATIENT'S OWN MEDICATION (NON-FORMULARY) (Pravastatin Sodium 40 MG) PO SCH (21:43)
[2016-08-29] MEDS: THIAMINE HCL 100 MG TABLET (FP) PO SCH (21:43)
[2016-08-29] MEDS: QUEtiapine FUMARATE 25 MG TABLET (FP) PO SCH (21:43)
[2016-08-30] MEDS ORDERED: METHADONE HCL 5 MG TABLET ONE (04:09)
[2016-08-30] MEDS ORDERED: METHADONE HCL 10 MG TABLET ONE (04:09)
[2016-08-30] MEDS ORDERED: METHADONE HCL 40 MG DISPERSABLE TABLET ONE (04:09)
[2016-08-30] MEDS: GEMFIBROZIL 600 MG TABLET (FP) PO SCH (06:18)
[2016-08-30] MEDS: METHADONE 40 MG, METHADONE 10 MG, METHADONE 5 MG PO SCH (06:18)
[2016-08-30] MEDS: ACETAMINOPHEN 500 MG TABLET (FP) PO PRN (06:19)
[2016-08-30 06:36] VITALS: BP 127/70; PULSE 68; TEMP 96.8
[2016-08-30] MEDS ORDERED: PT OWN MED DRAWER 7, Y5N ONE (09:10)
[2016-08-30] MEDS: HYDROCORTISONE 2.5% TOPICAL CREAM 30 GM TUBE TP SCH (09:36)
[2016-08-30] MEDS: PRENATAL VITAMINS W/ FOLIC ACID TABLET (FP) PO SCH (09:36)
[2016-08-30] MEDS: FERROUS SO4 325 MG TABLET (FP) PO SCH (09:36)
[2016-08-30] MEDS: BACITRACIN 0.9 GM PACKET TP SCH (09:36)
[2016-08-30] MEDS: SERTRALINE HCL 50 MG TABLET (FP) PO SCH (09:37)
[2016-08-30] MEDS: NAPROXEN 500 MG TABLET (FP) PO SCH (09:37)
[2016-08-30] MEDS: NICOTINE 14 MG/24 HOURS TOPICAL PATCH TD SCH (09:37)
== END 2016-08-30 10:00 | disposition home or self-care (01) | DRG 772 ==
LOC: YASAS 11:01 → Y3W 14:05
PROVIDERS: ADMIT Psychiatry & Neurology Psychiatry; ATTEND Psychiatry & Neurology Psychiatry
PROC: HZ42ZZZ Group Counseling for Substance Abuse Treatment, Cognitive-Behavioral (ICD-10-PCS; principal; 2016-08-30)
DX: F11.20 Opioid dependence, uncomplicated (principal); F13.20 Sedative, hypnotic or anxiolytic dependence, uncomplicated; F17.210 Nicotine dependence, cigarettes, uncomplicated; F31.89 Other bipolar disorder; G40.909 Epilepsy, unspecified, not intractable, without status epilepticus; G89.29 Other chronic pain; J45.909 Unspecified asthma, uncomplicated; E78.5 Hyperlipidemia, unspecified
CPT/HCPCS: 36415; 80053; 81003; 85027; 86593; 87389; 93005; 93010

== ENCOUNTER 2017-01-17 12:56 | Inpatient (IN) | payer OTHER ==
[2017-01-17 13:14] VITALS: BMI 24.7
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
[2017-01-17] MEDS ORDERED: diphenhydrAMINE HCL 50 MG CAPSULE PO PRN (18:41)
[2017-01-17] MEDS ORDERED: MAG HYDROX/AL HYDROX/SIMETH 30 ML UNIT-DOSE CUP PO PRN (18:41)
[2017-01-17] MEDS ORDERED: LOPERAMIDE HCL 2 MG CAPSULE PO PRN (18:41)
[2017-01-17] MEDS ORDERED: guaiFENesin/D-METHORPHAN HB 10 ML UNIT-DOSE CUPS PO PRN (18:41)
[2017-01-17] MEDS ORDERED: P-EPHED 60MG/TRIPROLIDI 2.5MG TABLET PO PRN (18:41)
[2017-01-17] MEDS ORDERED: hydrOXYzine PAMOATE 50 MG CAPSULE (FP) PO PRN (18:41)
[2017-01-17] MEDS ORDERED: MENTHOL/PHENOL 1 EACH UD MM PRN (18:41)
[2017-01-17] MEDS ORDERED: MAGNESIUM CITRATE 300 ML BOTTLE PO PRN (18:41)
[2017-01-17] MEDS ORDERED: NICOTINE POLACRILEX 2 MG GUM BUC PRN (18:41)
[2017-01-17] MEDS ORDERED: MAGNESIUM HYDROX 2400MG/30ML ORAL SUSPENSION 30 ML CUP PO PRN (18:41)
[2017-01-17] MEDS ORDERED: DOCUSATE SODIUM 100 MG CAPSULE (FP) PO PRN (18:47)
[2017-01-17] MEDS ORDERED: SENNOSIDES 8.6MG TABLET (FP) PO PRN (18:48)
[2017-01-17] MEDS: chlordiazePOXIDE HCL 25 MG CAPSULE PO PRN (19:42)
[2017-01-17 21:19] LABS: URINE APPEARANCE CLEAR; URINE BILIRUBIN NEGATIVE (NEGATIVE); URINE BLOOD 1+ (NEGATIVE); URINE COLOR YELLOW; URINE GLUCOSE (UA) NEGATIVE (NEGATIVE); URINE KETONE NEGATIVE (NEGATIVE); URINE LEUK ESTERASE NEGATIVE (NEGATIVE); URINE NITRITE NEGATIVE (NEGATIVE); URINE PROTEIN NEGATIVE (NEGATIVE); URINE UROBILINOGEN NEGATIVE mg/dL (0.2-1.0)
[2017-01-17 21:32] LABS: URINE BACTERIA RARE /hpf (NONE SEEN); URINE HYALINE CAST 5 /lpf; URINE MUCUS MODERATE; URINE RBC <1 /hpf (0-3); URINE WBC 1 /hpf (3-5)
[2017-01-17] MEDS: THIAMINE HCL 100 MG TABLET (FP) PO SCH (22:15)
[2017-01-17] MEDS: chlordiazePOXIDE HCL 25 MG CAPSULE PO SCH (22:15)
[2017-01-17] MEDS: RANITIDINE HCL 150 MG TABLET (FP) PO SCH (22:16)
[2017-01-17] MEDS: ATORVASTATIN CA 20 MG TABLET (FP) PO SCH (22:16)
[2017-01-17] MEDS: GABAPENTIN 100 MG CAPSULE (FP) PO SCH (22:16)
[2017-01-17] MEDS: BENZOCAINE 28 GM HEMORRHOIDAL OINTMENT PR SCH (23:00)
[2017-01-18] MEDS: GABAPENTIN 100 MG CAPSULE (FP) PO SCH ×3 (05:59→22:18)
[2017-01-18] MEDS: chlordiazePOXIDE HCL 25 MG CAPSULE PO SCH ×4 (05:59→22:18)
[2017-01-18] MEDS ORDERED: METHADONE HCL 40 MG DISPERSABLE TABLET PO SCH (07:15)
[2017-01-18] MEDS ORDERED: METHADONE HCL 10 MG TABLET ONE (07:53)
[2017-01-18] MEDS ORDERED: METHADONE HCL 5 MG TABLET ONE (07:53)
[2017-01-18] MEDS: METHADONE 30 MG, METHADONE 5 MG PO SCH (07:54)
--- NOTE | 2017-01-18 09:29 | EKG ---
Test Reason : Blood Pressure : / mmHG Vent. Rate : 069 BPM Atrial Rate : 069 BPM P-R Int : 154 ms QRS Dur : 084 ms QT Int : 412 ms P-R-T Axes : 057 049 051 degrees QTc Int : 441 ms NORMAL SINUS RHYTHM POSSIBLE LEFT ATRIAL ENLARGEMENT BORDERLINE ECG WHEN COMPARED WITH ECG OF 13-AUG-2016 21:46, NO SIGNIFICANT CHANGE WAS FOUND Confirmed by MD ANTONINA, ARPAN ([id number]) on 01/18/2017 9:29:22 AM Referred By: Confirmed By:ARPAN SARKAR MD
[2017-01-18] MEDS: PRENATAL VITAMINS W/ FOLIC ACID TABLET (FP) PO SCH (10:46)
[2017-01-18] MEDS: NICOTINE 14 MG/24 HOURS TOPICAL PATCH TD SCH (10:47)
[2017-01-18] MEDS: RANITIDINE HCL 150 MG TABLET (FP) PO SCH ×2 (10:47→22:18)
[2017-01-18] MEDS: ALBUTEROL SO4 6.7 GM HFA INHALER IH PRN (10:49)
[2017-01-18 10:57] LABS: MCH 31.6 pg (25.7-33.7); MCHC 33.5 g/dl (32.0-35.9); MEAN CELL VOLUME 94.3 fl (80-96); MEAN PLT VOLUME 8.3 fl (7.5-11.1); PLATELET COUNT 244 K/MM3 (134-434); RDW 13.4 % (11.9-15.9); WHITE BLOOD COUNT 4.4 K/mm3 (4.0-10.0)
[2017-01-18 11:05] LABS: ALBUMIN 3.1 g/dl (3.4-5.0); ANION GAP 9 (8-16); CO2 28 mmol/L (21-32); GLUCOSE,RANDOM 84 mg/dL (74-106)
[2017-01-18] MEDS ORDERED: ALBUTEROL SO4 2.5/IPRATROPIUM 0.5 INH SOL 3 ML VIAL.NEB. NEB PRN (11:05)
[2017-01-18 11:10] LABS: ALK PHOS 124 U/L (45-117); BILIRUBIN,TOTAL 0.6 mg/dL (0.2-1.0); CREATININE 0.8 mg/dL (0.7-1.3); SGOT/AST 11 U/L (15-37); SGPT/ALT 19 U/L (12-78); TOT PROT 5.6 g/dl (6.4-8.2)
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
--- NOTE | 2017-01-18 15:36 | PN ---
[facility] CIWA - CIWA Score Nausea/Vomitin-Mild Nausea/No Vomiting Muscle Tremors: 3 Anxiety: 4-Mod. Anxious/Guarded Agitation: 3 Paroxysmal Sweats: 3 Orientation: 0-Oriented Tacttile Disturbances: 2-Mild Itch/Numbness/Burn Auditory Disturbances: 0-None Visual Disturbances: 2-Mild Sensitivity Headache: 0-None Present CIWA-Ar Total Score: 18 S Progress Note (SOAP) Subjective: Sweating, Diarrhea, Tremors, Stomach Cramping, Body Aches, Interrupted sleep. Objective: PT. A & O X 3, OBSERVED AMBULATING ON UNIT. NO ACUTE DISTRESS. 01/18/17 15:33 Vital Signs Temperature 97.8 F 01/18/17 13:42 Pulse Rate 87 01/18/17 13:42 Respiratory Rate 18 01/18/17 13:42 Blood Pressure 126/74 01/18/17 13:42 O2 Sat by Pulse Oximetry (%) Laboratory Tests 01/17/17 01/18/17 01/18/17 20:00 07:50 07:50 WBC 4.4 RBC 3.69 L Hgb 11.6 L D Hct 34.7 L MCV 94.3 MCH 31.6 MCHC 33.5 RDW 13.4 Plt Count 244 MPV 8.3 Sodium 142 Potassium 4.0 Chloride 105 Carbon Dioxide 28 Anion Gap 9 BUN 18 D Creatinine 0.8 D Creat Clearance w eGFR > 60 Random Glucose 84 Calcium 8.0 L Total Bilirubin 0.6 D AST 11 L D ALT 19 Alkaline Phosphatase 124 H Total Protein 5.6 L Albumin 3.1 L D Urine Color Yellow Urine Appearance Clear Urine pH 5.0 Ur Specific [place] 1.020 Urine Protein Negative Urine Glucose (UA) Negative Urine Ketones Negative Urine Blood 1+ H Urine Nitrite Negative Urine Bilirubin Negative Urine Urobilinogen Negative Ur Leukocyte Esterase Negative Urine RBC <1 Urine WBC 1 Urine Bacteria Rare Hyaline Casts 5 Urine Mucus Moderate LABS NOTED. RPR, HIV AB, HCV AB RESULTS PENDING. 01/18/17 15:35 Assessment: 01/18/17 15:33 WITHDRAWAL SYMPTOMS. Plan: CONTINUE DETOX. FEOSOL, 325 MG PO BIDWM. REPEAT CBC ON 01/20/2017.
[2017-01-18 15:39] LABS: HIV 1 & 2 AB NEGATIVE; HIV 1 AGp24 NEGATIVE
[2017-01-18] MEDS: SERTRALINE HCL 50 MG TABLET (FP) PO SCH (15:39)
[2017-01-18] MEDS: FERROUS SO4 325 MG TABLET (FP) PO SCH (17:46)
[2017-01-18] MEDS ORDERED: MONTELUKAST NA 5 MG TAB.CHEW PO SCH (22:00)
[2017-01-18] MEDS: QUEtiapine FUMARATE 25 MG TABLET (FP) PO SCH (22:18)
[2017-01-18] MEDS: ATORVASTATIN CA 20 MG TABLET (FP) PO SCH (22:18)
[2017-01-18] MEDS: DOCUSATE SODIUM 100 MG CAPSULE (FP) PO SCH (22:19)
[2017-01-18] MEDS: MONTELUKAST NA 10 MG TABLET PO SCH (22:19)
[2017-01-18] MEDS: THIAMINE HCL 100 MG TABLET (FP) PO SCH (22:20)
[2017-01-18] MEDS: BENZOCAINE 28 GM HEMORRHOIDAL OINTMENT PR SCH (22:20)
[2017-01-19] MEDS ORDERED: METHADONE HCL 10 MG TABLET ONE (03:37)
[2017-01-19] MEDS ORDERED: METHADONE HCL 5 MG TABLET ONE (03:37)
[2017-01-19] MEDS: GABAPENTIN 100 MG CAPSULE (FP) PO SCH ×3 (05:00→22:09)
[2017-01-19] MEDS: chlordiazePOXIDE HCL 25 MG CAPSULE PO SCH ×3 (05:24→17:19)
[2017-01-19] MEDS: ACETAMINOPHEN 325 MG TABLET (FP) PO PRN ×3 (05:24→21:06)
[2017-01-19] MEDS: METHADONE 30 MG, METHADONE 5 MG PO SCH (05:24)
[2017-01-19] MEDS: FERROUS SO4 325 MG TABLET (FP) PO SCH ×2 (07:42→17:19)
[2017-01-19] MEDS: DOCUSATE SODIUM 100 MG CAPSULE (FP) PO SCH ×2 (10:04→22:09)
[2017-01-19] MEDS: RANITIDINE HCL 150 MG TABLET (FP) PO SCH ×2 (10:04→22:09)
[2017-01-19] MEDS: NICOTINE 14 MG/24 HOURS TOPICAL PATCH TD SCH (10:04)
[2017-01-19] MEDS: SERTRALINE HCL 50 MG TABLET (FP) PO SCH (10:04)
[2017-01-19] MEDS: PRENATAL VITAMINS W/ FOLIC ACID TABLET (FP) PO SCH (10:04)
[2017-01-19] MEDS: ALBUTEROL SO4 6.7 GM HFA INHALER IH PRN (10:06)
[2017-01-19] MEDS: CYCLOBENZAPRINE HCL 10 MG TABLET (FP) PO PRN ×2 (11:58→22:09)
[2017-01-19] MEDS: chlordiazePOXIDE HCL 25 MG CAPSULE PO PRN (13:10)
--- NOTE | 2017-01-19 14:11 | PN ---
[facility] CIWA - CIWA Score Nausea/Vomitin-No Nausea/No Vomiting Muscle Tremors: 4-Moderate,w/Arms Extend Anxiety: 4-Mod. Anxious/Guarded Agitation: 4-Moderately Restless Paroxysmal Sweats: 3 Orientation: 0-Oriented Tacttile Disturbances: 1-Very Mild Itch/Numbness Auditory Disturbances: 0-None Visual Disturbances: 0-None Headache: 1-Very Mild CIWA-Ar Total Score: 17 S Progress Note (SOAP) Subjective: Chills, tremor, headache, diarrhea, interrupted sleep, muscle spasm Objective: 01/19/17 14:06 Last Vital Signs Temp Pulse Resp BP Pulse Ox 97.5 F L 79 18 125/72 01/19/17 13:09 01/19/17 13:09 01/19/17 13:09 01/19/17 13:09 Laboratory Tests 01/17/17 01/18/17 01/18/17 20:00 07:50 07:50 WBC 4.4 RBC 3.69 L Hgb 11.6 L D Hct 34.7 L MCV 94.3 MCH 31.6 MCHC 33.5 RDW 13.4 Plt Count 244 MPV 8.3 Sodium Potassium Chloride Carbon Dioxide Anion Gap BUN Creatinine Creat Clearance w eGFR Random Glucose Calcium Total Bilirubin AST ALT Alkaline Phosphatase Total Protein Albumin Urine Color Yellow Urine Appearance Clear Urine pH 5.0 Ur Specific [place] 1.020 Urine Protein Negative Urine Glucose (UA) Negative Urine Ketones Negative Urine Blood 1+ H Urine Nitrite Negative Urine Bilirubin Negative Urine Urobilinogen Negative Ur Leukocyte Esterase Negative Urine RBC <1 Urine WBC 1 Urine Bacteria Rare Hyaline Casts 5 Urine Mucus Moderate RPR Titer Hepatitis C Antibody <0.1 HIV 1&2 Antibody Screen HIV P24 Antigen 01/18/17 01/18/17 01/18/17 07:50 07:50 08:00 WBC RBC Hgb Hct MCV MCH MCHC RDW Plt Count MPV Sodium 142 Potassium 4.0 Chloride 105 Carbon Dioxide 28 Anion Gap 9 BUN 18 D Creatinine 0.8 D Creat Clearance w eGFR > 60 Random Glucose 84 Calcium 8.0 L Total Bilirubin 0.6 D AST 11 L D ALT 19 Alkaline Phosphatase 124 H Total Protein 5.6 L Albumin 3.1 L D Urine Color Urine Appearance Urine pH Ur Specific [place] Urine Protein Urine Glucose (UA) Urine Ketones Urine Blood Urine Nitrite Urine Bilirubin Urine Urobilinogen Ur Leukocyte Esterase Urine RBC Urine WBC Urine Bacteria Hyaline Casts Urine Mucus RPR Titer Nonreactive Hepatitis C Antibody HIV 1&2 Antibody Screen Negative HIV P24 Antigen Negative Labs noted: UA 1+ blood Assessment: 01/19/17 14:08 Withdrawal symptoms Noted with microscopic hematuria Plan: Continue detox, flexeril 10mg PO TID PRN ordered Microscopic hematuria: encouraged to drink lots of water, repeat UA
[2017-01-19] MEDS: BENZOCAINE 28 GM HEMORRHOIDAL OINTMENT PR SCH (22:08)
[2017-01-19] MEDS: MONTELUKAST NA 10 MG TABLET PO SCH (22:09)
[2017-01-19] MEDS: QUEtiapine FUMARATE 25 MG TABLET (FP) PO SCH (22:09)
[2017-01-19] MEDS: THIAMINE HCL 100 MG TABLET (FP) PO SCH (22:09)
[2017-01-19] MEDS: ATORVASTATIN CA 20 MG TABLET (FP) PO SCH (22:09)
[2017-01-19] MEDS: chlordiazePOXIDE 5 MG CAPSULE PO SCH (22:09)
[2017-01-20] MEDS: ACETAMINOPHEN 325 MG TABLET (FP) PO PRN (02:40)
[2017-01-20] MEDS ORDERED: METHADONE HCL 10 MG TABLET ONE (04:51)
[2017-01-20] MEDS ORDERED: METHADONE HCL 5 MG TABLET ONE (04:51)
[2017-01-20] MEDS: GABAPENTIN 100 MG CAPSULE (FP) PO SCH ×4 (05:05→22:21)
[2017-01-20] MEDS: METHADONE 30 MG, METHADONE 5 MG PO SCH (05:05)
[2017-01-20] MEDS: ALBUTEROL SO4 6.7 GM HFA INHALER IH PRN (05:08)
[2017-01-20] MEDS: chlordiazePOXIDE 5 MG CAPSULE PO SCH ×3 (06:11→17:37)
[2017-01-20] MEDS: FERROUS SO4 325 MG TABLET (FP) PO SCH ×2 (07:17→17:37)
--- NOTE | 2017-01-20 09:02 | PN ---
[facility] Progress Note (SOAP) Subjective: nausea, sweats, interrupted sleep, anxiety, tremors Objective: 01/20/17 09:01 Vital Signs - 8 hr 01/20/17 01/20/17 03:34 06:21 Temperature 96.7 F L Pulse Rate 68 Respiratory 18 16 Rate Blood Pressure 157/87 Laboratory Tests 01/17/17 01/18/17 01/18/17 20:00 07:50 07:50 WBC 4.4 RBC 3.69 L Hgb 11.6 L D Hct 34.7 L MCV 94.3 MCH 31.6 MCHC 33.5 RDW 13.4 Plt Count 244 MPV 8.3 Sodium Potassium Chloride Carbon Dioxide Anion Gap BUN Creatinine Creat Clearance w eGFR Random Glucose Calcium Total Bilirubin AST ALT Alkaline Phosphatase Total Protein Albumin Urine Color Yellow Urine Appearance Clear Urine pH 5.0 Ur Specific [place] 1.020 Urine Protein Negative Urine Glucose (UA) Negative Urine Ketones Negative Urine Blood 1+ H Urine Nitrite Negative Urine Bilirubin Negative Urine Urobilinogen Negative Ur Leukocyte Esterase Negative Urine RBC <1 Urine WBC 1 Urine Bacteria Rare Hyaline Casts 5 Urine Mucus Moderate RPR Titer Hepatitis C Antibody <0.1 HIV 1&2 Antibody Screen HIV P24 Antigen 01/18/17 01/18/17 01/18/17 07:50 07:50 08:00 WBC RBC Hgb Hct MCV MCH MCHC RDW Plt Count MPV Sodium 142 Potassium 4.0 Chloride 105 Carbon Dioxide 28 Anion Gap 9 BUN 18 D Creatinine 0.8 D Creat Clearance w eGFR > 60 Random Glucose 84 Calcium 8.0 L Total Bilirubin 0.6 D AST 11 L D ALT 19 Alkaline Phosphatase 124 H Total Protein 5.6 L Albumin 3.1 L D Urine Color Urine Appearance Urine pH Ur Specific [place] Urine Protein Urine Glucose (UA) Urine Ketones Urine Blood Urine Nitrite Urine Bilirubin Urine Urobilinogen Ur Leukocyte Esterase Urine RBC Urine WBC Urine Bacteria Hyaline Casts Urine Mucus RPR Titer Nonreactive Hepatitis C Antibody HIV 1&2 Antibody Screen Negative HIV P24 Antigen Negative Assessment: 01/20/17 09:01 withdrawal sx, anemia Plan: cont detox, fluids, iron
[2017-01-20] MEDS ORDERED: ZOLPIDEM TARTRATE 10 MG TABLET (PARK CARE ONLY) PO PRN (09:50)
[2017-01-20] MEDS: DOCUSATE SODIUM 100 MG CAPSULE (FP) PO SCH ×2 (10:12→22:23)
[2017-01-20] MEDS: RANITIDINE HCL 150 MG TABLET (FP) PO SCH ×2 (10:12→22:22)
[2017-01-20] MEDS: SERTRALINE HCL 50 MG TABLET (FP) PO SCH (10:12)
[2017-01-20] MEDS: PRENATAL VITAMINS W/ FOLIC ACID TABLET (FP) PO SCH (10:12)
[2017-01-20] MEDS: NICOTINE 14 MG/24 HOURS TOPICAL PATCH TD SCH (10:13)
[2017-01-20 10:16] LABS: MCH 31.6 pg (25.7-33.7); MCHC 33.7 g/dl (32.0-35.9); MEAN CELL VOLUME 93.8 fl (80-96); MEAN PLT VOLUME 8.4 fl (7.5-11.1); NEUTROPHILS 54.6 % (42.8-82.8); PLATELET COUNT 274 K/MM3 (134-434); RDW 13.3 % (11.9-15.9); WHITE BLOOD COUNT 4.4 K/mm3 (4.0-10.0)
[2017-01-20] MEDS: CYCLOBENZAPRINE HCL 10 MG TABLET (FP) PO PRN ×2 (10:27→22:22)
[2017-01-20] MEDS ORDERED: ALBUTEROL SO4 6.7 GM HFA INHALER IH PRN (10:33)
[2017-01-20] MEDS ORDERED: HYDROCHLOROTHIAZIDE 12.5 MG CAPSULE (FP) PO SCH (11:30)
[2017-01-20] MEDS: cloNIDine HCL 0.1 MG TABLET PO SCH ×2 (12:34→22:22)
[2017-01-20] MEDS: NAPROXEN 500 MG TABLET (FP) PO SCH ×2 (12:35→22:22)
[2017-01-20] MEDS ORDERED: chlordiazePOXIDE HCL 25 MG CAPSULE PO ONE (13:00)
[2017-01-20 14:03] LABS: URINE APPEARANCE SLCLOUDY; URINE BILIRUBIN NEGATIVE (NEGATIVE); URINE BLOOD NEGATIVE (NEGATIVE); URINE COLOR LTYELLOW; URINE GLUCOSE (UA) NEGATIVE (NEGATIVE); URINE KETONE NEGATIVE (NEGATIVE); URINE LEUK ESTERASE NEGATIVE (NEGATIVE); URINE NITRITE NEGATIVE (NEGATIVE); URINE PROTEIN NEGATIVE (NEGATIVE); URINE UROBILINOGEN NEGATIVE mg/dL (0.2-1.0)
[2017-01-20] MEDS ORDERED: SENNOSIDES 8.6MG TABLET (FP) PO SCH (22:00)
[2017-01-20] MEDS: chlordiazePOXIDE HCL 10 MG CAPSULE PO SCH (22:21)
[2017-01-20] MEDS: THIAMINE HCL 100 MG TABLET (FP) PO SCH (22:21)
[2017-01-20] MEDS: QUEtiapine FUMARATE 25 MG TABLET (FP) PO SCH (22:22)
[2017-01-20] MEDS: ATORVASTATIN CA 20 MG TABLET (FP) PO SCH (22:22)
[2017-01-20] MEDS: MONTELUKAST NA 10 MG TABLET PO SCH (22:22)
[2017-01-20] MEDS: BENZOCAINE 28 GM HEMORRHOIDAL OINTMENT PR SCH (22:23)
[2017-01-21] MEDS ORDERED: METHADONE HCL 10 MG TABLET ONE (03:43)
[2017-01-21] MEDS ORDERED: METHADONE HCL 5 MG TABLET ONE (03:43)
[2017-01-21] MEDS: chlordiazePOXIDE HCL 10 MG CAPSULE PO SCH (05:41)
[2017-01-21] MEDS: METHADONE 30 MG, METHADONE 5 MG PO SCH (05:42)
[2017-01-21] MEDS: GABAPENTIN 100 MG CAPSULE (FP) PO SCH (05:42)
[2017-01-21] MEDS: FERROUS SO4 325 MG TABLET (FP) PO SCH (07:27)
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
[2017-01-21 09:12] VITALS: BP 114/70; PULSE 89; TEMP 97.4
== END 2017-01-21 09:23 | disposition home or self-care (01) | DRG 773 ==
LOC: YASAS 12:56 → Y3N 17:35
PROVIDERS: ADMIT Internal Medicine Addiction Medicine; ATTEND Internal Medicine Addiction Medicine
PROC: HZ2ZZZZ Detoxification Services for Substance Abuse Treatment (ICD-10-PCS; principal; 2017-01-17)
DX: F10.230 Alcohol dependence with withdrawal, uncomplicated (principal); F11.20 Opioid dependence, uncomplicated; F17.210 Nicotine dependence, cigarettes, uncomplicated; F19.24 Other psychoactive substance dependence with psychoactive substance-induced mood disorder; F31.9 Bipolar disorder, unspecified; F34.1 Dysthymic disorder; K21.9 Gastro-esophageal reflux disease without esophagitis; J45.22 Mild intermittent asthma with status asthmaticus; D64.9 Anemia, unspecified; H91.91 Unspecified hearing loss, right ear; E78.5 Hyperlipidemia, unspecified; R31.29 Other microscopic hematuria; G47.00 Insomnia, unspecified; Z87.898 Personal history of other specified conditions
CPT/HCPCS: 36415; 80053; 81003; 81015; 85025; 85027; 86593; 86803; 87389; 93005; 93010; 94640

== ENCOUNTER 2017-06-01 10:31 | Inpatient (IN) | payer OTHER ==
[2017-06-01 10:40] VITALS: BMI 24.5
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
[2017-06-01] MEDS ORDERED: chlordiazePOXIDE HCL 25 MG CAPSULE PO ONE (13:12)
[2017-06-01] MEDS ORDERED: MENTHOL/PHENOL 1 EACH UD MM PRN (13:12)
[2017-06-01] MEDS ORDERED: MAGNESIUM HYDROX 2400MG/30ML ORAL SUSPENSION 30 ML CUP PO PRN (13:12)
[2017-06-01] MEDS ORDERED: ACETAMINOPHEN 325 MG TABLET (FP) PO PRN (13:12)
[2017-06-01] MEDS ORDERED: MAGNESIUM CITRATE 300 ML BOTTLE PO PRN (13:12)
[2017-06-01] MEDS ORDERED: LOPERAMIDE HCL 2 MG CAPSULE PO PRN (13:12)
[2017-06-01] MEDS ORDERED: MAG HYDROX/AL HYDROX/SIMETH 30 ML UNIT-DOSE CUP PO PRN (13:12)
[2017-06-01] MEDS ORDERED: guaiFENesin/D-METHORPHAN HB 10 ML UNIT-DOSE CUPS PO PRN (13:12)
[2017-06-01] MEDS ORDERED: P-EPHED 60MG/TRIPROLIDI 2.5MG TABLET PO PRN (13:12)
[2017-06-01] MEDS ORDERED: [UNRECOGNIZED DRUG - OTHER] RC SCH (13:15)
[2017-06-01] MEDS ORDERED: GABAPENTIN 100 MG CAPSULE (FP) PO SCH (13:15)
[2017-06-01] MEDS ORDERED: PATIENT'S OWN MEDICATION (NON-FORMULARY) (Famotidine [Pepcid -] 20 MG) PO SCH (13:15)
[2017-06-01] MEDS ORDERED: PATIENT'S OWN MEDICATION (NON-FORMULARY) (Ferrous Sulfate [Feosol] 325 MG) PO SCH (13:15)
[2017-06-01] MEDS ORDERED: ALBUTEROL SO4 0.083% IH SOL 2.5 MG/3 ML VIAL.NEB. NEB PRN (13:18)
[2017-06-01] MEDS: GABAPENTIN 100 MG CAPSULE (FP) PO SCH ×2 (14:51→22:13)
[2017-06-01] MEDS: SENNOSIDES 8.6MG TABLET (FP) PO SCH (14:51)
[2017-06-01] MEDS: PANTOPRAZOLE 20 MG TABLET (FP) PO SCH (14:59)
--- NOTE | 2017-06-01 15:59 | EKG ---
Test Reason : Blood Pressure : / mmHG Vent. Rate : 081 BPM Atrial Rate : 081 BPM P-R Int : 138 ms QRS Dur : 082 ms QT Int : 400 ms P-R-T Axes : 047 043 053 degrees QTc Int : 464 ms NORMAL SINUS RHYTHM NORMAL ECG WHEN COMPARED WITH ECG OF 17-JAN-2017 19:52, NO SIGNIFICANT CHANGE WAS FOUND Confirmed by Jose Daniel Arriaga ([id number]) on 06/01/2017 3:59:46 PM Referred By: Confirmed By:Jose Daniel Arriaga
[2017-06-01] MEDS: chlordiazePOXIDE HCL 25 MG CAPSULE PO SCH ×3 (17:15→22:12)
[2017-06-01 17:59] LABS: URINE APPEARANCE TURBID; URINE BILIRUBIN NEGATIVE (NEGATIVE); URINE BLOOD NEGATIVE (NEGATIVE); URINE COLOR YELLOW; URINE GLUCOSE (UA) NEGATIVE (NEGATIVE); URINE KETONE NEGATIVE (NEGATIVE); URINE LEUK ESTERASE NEGATIVE (NEGATIVE); URINE NITRITE NEGATIVE (NEGATIVE); URINE UROBILINOGEN NEGATIVE mg/dL (0.2-1.0)
[2017-06-01 18:03] LABS: URINE PROTEIN 1+ (NEGATIVE)
[2017-06-01 18:05] LABS: URINE MUCUS MODERATE
[2017-06-01] MEDS: chlordiazePOXIDE HCL 25 MG CAPSULE PO PRN (20:06)
[2017-06-01] MEDS ORDERED: PATIENT'S OWN MEDICATION (NON-FORMULARY) (Pravastatin Sodium 40 MG) PO SCH (22:00)
[2017-06-01] MEDS: ATORVASTATIN CA 10 MG TABLET (FP) PO SCH (22:12)
[2017-06-01] MEDS: THIAMINE HCL 100 MG TABLET (FP) PO SCH (22:12)
[2017-06-01] MEDS: HYDROCORTISONE 2.5% TOPICAL CREAM 30 GM TUBE TP SCH (22:27)
[2017-06-02] MEDS: ALBUTEROL SO4 18 GM HFA INHALER IH PRN (01:05)
[2017-06-02] MEDS: IBUPROFEN 400 MG TABLET (FP) PO PRN ×3 (01:06→22:16)
[2017-06-02] MEDS: GABAPENTIN 100 MG CAPSULE (FP) PO SCH ×3 (06:00→22:14)
[2017-06-02] MEDS: chlordiazePOXIDE HCL 25 MG CAPSULE PO SCH ×4 (06:01→22:13)
[2017-06-02] MEDS ORDERED: ALBUTEROL SO4 2.5/IPRATROPIUM 0.5 INH SOL 3 ML VIAL.NEB. NEB ONE (09:16)
[2017-06-02] MEDS: PANTOPRAZOLE 20 MG TABLET (FP) PO SCH (10:07)
[2017-06-02] MEDS: SERTRALINE HCL 50 MG TABLET (FP) PO SCH (10:08)
[2017-06-02] MEDS: HYDROCORTISONE 2.5% TOPICAL CREAM 30 GM TUBE TP SCH ×2 (10:08→22:13)
[2017-06-02] MEDS: PRENATAL VITAMINS W/ FOLIC ACID TABLET (FP) PO SCH (10:08)
[2017-06-02] MEDS: SENNOSIDES 8.6MG TABLET (FP) PO SCH (10:08)
[2017-06-02] MEDS: BUDESONIDE/FORMETEROL FUMARATE 80/4.5 mcg INHALER IH SCH ×2 (10:09→23:09)
[2017-06-02 10:21] LABS: HEMATOCRIT 31.9 % (35.4-49); HEMOGLOBIN 10.8 GM/dL (11.7-16.9); MCHC 33.9 g/dl (32.0-35.9); MEAN CELL VOLUME 94.2 fl (80-96); MEAN PLT VOLUME 6.8 fl (7.5-11.1); PLATELET COUNT 328 K/MM3 (134-434); RBC 3.39 M/mm3 (4.00-5.60); RDW 14.5 % (11.9-15.9); WHITE BLOOD COUNT 5.2 K/mm3 (4.0-10.0)
[2017-06-02 10:25] LABS: ALBUMIN 2.8 g/dl (3.4-5.0); ANION GAP 10 (8-16); BLOOD UREA NITROGEN 10 mg/dL (7-18); CALCIUM 7.5 mg/dL (8.5-10.1); CHLORIDE 98 mmol/L (98-107); CO2 29 mmol/L (21-32); CREATININE 0.9 mg/dL (0.7-1.3); GLUCOSE,RANDOM 104 mg/dL (74-106); POTASSIUM 3.3 mmol/L (3.5-5.1); SGOT/AST 142 U/L (15-37); SGPT/ALT 84 U/L (12-78); SODIUM 137 mmol/L (136-145)
[2017-06-02 10:26] LABS: ALK PHOS 111 U/L (45-117); BILIRUBIN,TOTAL 0.6 mg/dL (0.2-1.0); TOT PROT 5.6 g/dl (6.4-8.2)
[2017-06-02] MEDS ORDERED: METHADONE HCL 10 MG TABLET PO ONE (10:33)
--- NOTE | 2017-06-02 11:01 | CONSULT ---
[facility] Psychiatric Consult - Data Date of interview: 06/02/17 Admission source: [facility] Identifying data: Pt. is a 61 year male, single, without kids, and currently unemployed. This is one of multiple admissions to [facility]. Pt. admitted to for alcohol and cannabis dependence. Substance Abuse History: Following information confirmed with Mr. Sen: Smoking Cessation. Smoking history: Former smoker. Have you smoked in the past 12 months: No. Aproximately how many cigarettes per day: 10. If you are a former smoker, when did you quit?: 5 years ago. Hx Chewing Tobacco Use: No. Initiated information on smoking cessation: No. - Substance & Tx. History. Hx Alcohol Use: Yes. Hx Substance Use: Yes (Prior hx of Heroin use currently in [facility] ). Substance Use Type: Alcohol. Hx Substance Use Treatment: Yes (Reports that Alcohol detox a month ago at [facility] ). - Substances Abused. Alcohol. Route: Oral. Frequency: Daily. Amount used: vodka(1 gallon). Age of first use: 9. Date of Last Use: 06/01/17. Marijuana/Hashish. Route: Smoking. Frequency: 1-3 times last 30 days. Amount used: "a couple of pulls " . Age of first use: 15 Medical History: Asthma, hypercholestermia, Seizures (last seizures was three weeks ago), HIV Psychiatric History: Pt. reports one psychiatric hospitalization over twenty years ago [address] [facility] and was diagnosed with Bipolar disorder. Pt. currently see's a psychiatrist at the [facility] service in the [place] and is prescribed zoloft 50mg and seroquel 25mg. Reports taking his medications three days ago. Pt. denies h/o suicide attemtpt. Pt. denies sucidial and homicidal ideatio. Physical/Sexual Abuse/Trauma History: Denies. Mental Status Exam - Mental Status Exam Alert and Oriented to: Time, Place, Person Cognitive Function: Good Patient Appearance: Well Groomed Mood: Euthymic Affect: Mood Congruent Patient Behavior: Appropriate, Cooperative Speech Pattern: Clear, Appropriate Voice Loudness: Normal Thought Process: Goal Oriented Thought Disorder: Not Present Hallucinations: Denies Suicidal Ideation: Denies Homicidal Ideation: Denies Insight/Judgement: Poor Sleep: Poorly Appetite: Fair Muscle strength/Tone: Normal Gait/Station: Other (Did not observe patien't gait.) Psychiatric Findings - Problem List (Cast[place] 1, 2,3) (1) Alcohol dependence with uncomplicated withdrawal Current Visit: Yes Status: Acute (2) Bipolar disorder Current Visit: Yes Status: Chronic Comment: History. (3) Cannabis dependence Current Visit: Yes Status: Acute - Initial Treatment Plan Initial Treatment Plan: Psychoeducation provided. Detoxification in progress. Zoloft 50mg po daily + Seroquel 25mg qhs ordered. Benefits and side effects discussed. Verbal consent given. Will continue to monitor patient.
--- NOTE | 2017-06-02 11:11 | PN ---
[facility] CIWA - CIWA Score Nausea/Vomitin-No Nausea/No Vomiting Muscle Tremors: 4-Moderate,w/Arms Extend Anxiety: 4-Mod. Anxious/Guarded Agitation: 4-Moderately Restless Paroxysmal Sweats: 1-Minimal Palms Moist Orientation: 0-Oriented Tacttile Disturbances: 3-Moderate Itch/Numb/Burn Auditory Disturbances: 0-None Visual Disturbances: 0-None Headache: 0-None Present CIWA-Ar Total Score: 16 S Progress Note (SOAP) Subjective: ANXIETY,SWEATS,TREMORS. PT C/O SOB,COUGHING UP GREEN SPUTUM. HX ASTHMA. Objective: 06/02/17 11:05 Vital Signs Temperature 98.7 F 06/02/17 09:39 Pulse Rate 82 06/02/17 09:39 Respiratory Rate 16 06/02/17 09:39 Blood Pressure 140/83 06/02/17 09:39 O2 Sat by Pulse Oximetry (%) Laboratory Last Values WBC 5.2 K/mm3 (4.0-10.0) 06/02/17 07:00 RBC 3.39 M/mm3 (4.00-5.60) L 06/02/17 07:00 Hgb 10.8 GM/dL (11.7-16.9) L D 06/02/17 07:00 Hct 31.9 % (35.4-49) L D 06/02/17 07:00 MCV 94.2 fl (80-96) 06/02/17 07:00 MCH 32.0 pg (25.7-33.7) 06/02/17 07:00 MCHC 33.9 g/dl (32.0-35.9) 06/02/17 07:00 RDW 14.5 % (11.9-15.9) 06/02/17 07:00 Plt Count 328 K/MM3 (134-434) 06/02/17 07:00 MPV 6.8 fl (7.5-11.1) L D 06/02/17 07:00 Sodium 137 mmol/L (136-145) 06/02/17 07:00 Potassium 3.3 mmol/L (3.5-5.1) L 06/02/17 07:00 Chloride 98 mmol/L (98-107) 06/02/17 07:00 Carbon Dioxide 29 mmol/L (21-32) 06/02/17 07:00 Anion Gap 10 (8-16) 06/02/17 07:00 BUN 10 mg/dL (7-18) D 06/02/17 07:00 Creatinine 0.9 mg/dL (0.7-1.3) 06/02/17 07:00 Creat Clearance w eGFR > 60 (>60) 06/02/17 07:00 Random Glucose 104 mg/dL (74-106) D 06/02/17 07:00 Calcium 7.5 mg/dL (8.5-10.1) L 06/02/17 07:00 Total Bilirubin 0.6 mg/dL (0.2-1.0) 06/02/17 07:00 AST 142 U/L (15-37) H D 06/02/17 07:00 ALT 84 U/L (12-78) H D 06/02/17 07:00 Alkaline Phosphatase 111 U/L (45-117) 06/02/17 07:00 Total Protein 5.6 g/dl (6.4-8.2) L 06/02/17 07:00 Albumin 2.8 g/dl (3.4-5.0) L 06/02/17 07:00 Urine Color Yellow 06/01/17 16:00 Urine Appearance Turbid 06/01/17 16:00 Urine pH 5.0 (5.0-8.0) D 06/01/17 16:00 Ur Specific [place] 1.023 (1.001-1.035) 06/01/17 16:00 Urine Protein 1+ (NEGATIVE) H 06/01/17 16:00 Urine Glucose (UA) Negative (NEGATIVE) 06/01/17 16:00 Urine Ketones Negative (NEGATIVE) 06/01/17 16:00 Urine Blood Negative (NEGATIVE) 06/01/17 16:00 Urine Nitrite Negative (NEGATIVE) 06/01/17 16:00 Urine Bilirubin Negative (NEGATIVE) 06/01/17 16:00 Urine Urobilinogen Negative mg/dL (0.2-1.0) 06/01/17 16:00 Ur Leukocyte Esterase Negative (NEGATIVE) 06/01/17 16:00 Urine WBC (Auto) 75 /hpf (3-5) 06/01/17 16:00 Urine RBC (Auto) 6 /hpf (0-3) 06/01/17 16:00 Urine Mucus Moderate 06/01/17 16:00 K+ = 3.3 Assessment: 06/02/17 11:11 WITHDRAWAL SX HYPOKALEMIA Plan: CONTINUE DETOX KCL LIQ 20 MEQ PO BID.
[2017-06-02] MEDS ORDERED: POTASSIUM CHLORIDE ORAL LIQUID 20 MEQ/15 ML PO ONE (11:51)
[2017-06-02] MEDS: chlordiazePOXIDE HCL 25 MG CAPSULE PO PRN ×2 (13:11→21:38)
[2017-06-02] MEDS: ALBUTEROL SO4 2.5/IPRATROPIUM 0.5 INH SOL 3 ML VIAL.NEB. NEB SCH ×2 (13:14→18:10)
[2017-06-02] MEDS: AMOX TR/POT CLAV 875MG/125MG TABLETS (FP) PO SCH (17:07)
[2017-06-02] MEDS: hydrOXYzine PAMOATE 50 MG CAPSULE (FP) PO PRN (17:12)
[2017-06-02] MEDS: POTASSIUM CHLORIDE ORAL LIQUID 20 MEQ/15 ML PO SCH (22:13)
[2017-06-02] MEDS: THIAMINE HCL 100 MG TABLET (FP) PO SCH (22:13)
[2017-06-02] MEDS: ATORVASTATIN CA 10 MG TABLET (FP) PO SCH (22:13)
[2017-06-02] MEDS: QUEtiapine FUMARATE 25 MG TABLET (FP) PO SCH (22:14)
[2017-06-02] MEDS: MONTELUKAST NA 10 MG TABLET PO SCH (22:14)
[2017-06-03] MEDS: METHADONE HCL 10 MG TABLET PO SCH (05:19)
[2017-06-03] MEDS: GABAPENTIN 100 MG CAPSULE (FP) PO SCH ×3 (05:19→22:36)
[2017-06-03] MEDS: chlordiazePOXIDE HCL 25 MG CAPSULE PO SCH ×2 (06:13→10:10)
[2017-06-03] MEDS: ALBUTEROL SO4 2.5/IPRATROPIUM 0.5 INH SOL 3 ML VIAL.NEB. NEB SCH ×4 (08:07→17:23)
[2017-06-03] MEDS: AMOX TR/POT CLAV 875MG/125MG TABLETS (FP) PO SCH ×2 (08:09→17:25)
--- NOTE | 2017-06-03 10:06 | PN ---
[facility] CIWA - CIWA Score Nausea/Vomitin (DIARRHEA) Muscle Tremors: 5 Anxiety: 4-Mod. Anxious/Guarded Agitation: 3 Paroxysmal Sweats: 1-Minimal Palms Moist Orientation: 0-Oriented Tacttile Disturbances: 3-Moderate Itch/Numb/Burn Auditory Disturbances: 0-None Visual Disturbances: 0-None Headache: 0-None Present CIWA-Ar Total Score: 21 S Progress Note (SOAP) Subjective: TREMORS, ANXIETY,UNCONTROLLED DIARRHEA, REPORTS ONGOING X 3 DAYS, CHEST CONGESTION. PT STATES "I TAKE PREDNISONE FOR MY BREATHING" PT GOT RX PREDNISONE 20 MG LAST IN 10/10/16 PER HOME PHARMACY RECORDS. Objective: 06/03/17 10:07 Vital Signs Temperature 96.6 F L 06/03/17 09:21 Pulse Rate 107 H 06/03/17 09:21 Respiratory Rate 19 06/03/17 09:21 Blood Pressure 145/92 06/03/17 09:21 O2 Sat by Pulse Oximetry (%) Laboratory Last Values WBC 5.2 K/mm3 (4.0-10.0) 06/02/17 07:00 RBC 3.39 M/mm3 (4.00-5.60) L 06/02/17 07:00 Hgb 10.8 GM/dL (11.7-16.9) L D 06/02/17 07:00 Hct 31.9 % (35.4-49) L D 06/02/17 07:00 MCV 94.2 fl (80-96) 06/02/17 07:00 MCH 32.0 pg (25.7-33.7) 06/02/17 07:00 MCHC 33.9 g/dl (32.0-35.9) 06/02/17 07:00 RDW 14.5 % (11.9-15.9) 06/02/17 07:00 Plt Count 328 K/MM3 (134-434) 06/02/17 07:00 MPV 6.8 fl (7.5-11.1) L D 06/02/17 07:00 Sodium 137 mmol/L (136-145) 06/02/17 07:00 Potassium 3.3 mmol/L (3.5-5.1) L 06/02/17 07:00 Chloride 98 mmol/L (98-107) 06/02/17 07:00 Carbon Dioxide 29 mmol/L (21-32) 06/02/17 07:00 Anion Gap 10 (8-16) 06/02/17 07:00 BUN 10 mg/dL (7-18) D 06/02/17 07:00 Creatinine 0.9 mg/dL (0.7-1.3) 06/02/17 07:00 Creat Clearance w eGFR > 60 (>60) 06/02/17 07:00 Random Glucose 104 mg/dL (74-106) D 06/02/17 07:00 Calcium 7.5 mg/dL (8.5-10.1) L 06/02/17 07:00 Total Bilirubin 0.6 mg/dL (0.2-1.0) 06/02/17 07:00 AST 142 U/L (15-37) H D 06/02/17 07:00 ALT 84 U/L (12-78) H D 06/02/17 07:00 Alkaline Phosphatase 111 U/L (45-117) 06/02/17 07:00 Total Protein 5.6 g/dl (6.4-8.2) L 06/02/17 07:00 Albumin 2.8 g/dl (3.4-5.0) L 06/02/17 07:00 Urine Color Yellow 06/01/17 16:00 Urine Appearance Turbid 06/01/17 16:00 Urine pH 5.0 (5.0-8.0) D 06/01/17 16:00 Ur Specific [place] 1.023 (1.001-1.035) 06/01/17 16:00 Urine Protein 1+ (NEGATIVE) H 06/01/17 16:00 Urine Glucose (UA) Negative (NEGATIVE) 06/01/17 16:00 Urine Ketones Negative (NEGATIVE) 06/01/17 16:00 Urine Blood Negative (NEGATIVE) 06/01/17 16:00 Urine Nitrite Negative (NEGATIVE) 06/01/17 16:00 Urine Bilirubin Negative (NEGATIVE) 06/01/17 16:00 Urine Urobilinogen Negative mg/dL (0.2-1.0) 06/01/17 16:00 Ur Leukocyte Esterase Negative (NEGATIVE) 06/01/17 16:00 Urine WBC (Auto) 75 /hpf (3-5) 06/01/17 16:00 Urine RBC (Auto) 6 /hpf (0-3) 06/01/17 16:00 Urine Mucus Moderate 06/01/17 16:00 RPR Titer Nonreactive (NONREACTIVE) 06/02/17 07:00 CXR RESULT-NO ACUTE CARDIOPULMONARY DISEASE PRESENT. Assessment: 06/03/17 10:07 WITHDRAWAL SX Plan: CONTINUE DETOX RESTART PREDNISONE 20 MG PO DAILY STOP THE SENNA FOR NOW. LOMOTIL DIRECTED.
[2017-06-03] MEDS ORDERED: DIPHENOXYLATE 2.5/ATROPINE.025 1 COMBO TABLET PO PRN (10:09)
[2017-06-03] MEDS: POTASSIUM CHLORIDE ORAL LIQUID 20 MEQ/15 ML PO SCH ×2 (10:09→22:35)
[2017-06-03] MEDS: BUDESONIDE/FORMETEROL FUMARATE 80/4.5 mcg INHALER IH SCH ×2 (10:09→22:39)
[2017-06-03] MEDS: SENNOSIDES 8.6MG TABLET (FP) PO SCH (10:10)
[2017-06-03] MEDS: PRENATAL VITAMINS W/ FOLIC ACID TABLET (FP) PO SCH (10:10)
[2017-06-03] MEDS: FERROUS SO4 325 MG TABLET (FP) PO SCH (10:10)
[2017-06-03] MEDS: SERTRALINE HCL 50 MG TABLET (FP) PO SCH (10:10)
[2017-06-03] MEDS: HYDROCORTISONE 2.5% TOPICAL CREAM 30 GM TUBE TP SCH ×2 (10:11→22:36)
[2017-06-03] MEDS: PANTOPRAZOLE 20 MG TABLET (FP) PO SCH (10:11)
[2017-06-03] MEDS: chlordiazePOXIDE 5 MG CAPSULE PO SCH ×2 (10:36→17:25)
[2017-06-03] MEDS ORDERED: DIPHENOXYLATE 2.5/ATROPINE.025 1 COMBO TABLET PO ONE (11:00)
[2017-06-03] MEDS: predniSONE 20 MG TABLET (UD) PO SCH (12:05)
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
--- NOTE | 2017-06-03 20:56 | PN ---
[facility] Progress Note Note: received nurse called that the patient wants to leave face to face with the patient x 35-40 minutes patient is alert oriented x 3 tremor anxiety restlessness bp 123/74 ap 102 tempt 97.1 inter profession team approach 1:1 observation due to alcohol withdrawal symptoms and signs presentation case discussed with psychiatrist and nursing supervisor plastics regarding 1:1 close monitoring patient agrees to stay continue detox regimen and 1:1 observation
[2017-06-03] MEDS: MONTELUKAST NA 10 MG TABLET PO SCH (22:36)
[2017-06-03] MEDS: ATORVASTATIN CA 10 MG TABLET (FP) PO SCH (22:36)
[2017-06-03] MEDS: THIAMINE HCL 100 MG TABLET (FP) PO SCH (22:36)
[2017-06-03] MEDS: QUEtiapine FUMARATE 25 MG TABLET (FP) PO SCH (22:41)
[2017-06-04] MEDS: ALBUTEROL SO4 2.5/IPRATROPIUM 0.5 INH SOL 3 ML VIAL.NEB. NEB SCH ×2 (00:59→06:25)
[2017-06-04] MEDS: METHADONE HCL 10 MG TABLET PO SCH (05:29)
[2017-06-04] MEDS: chlordiazePOXIDE 5 MG CAPSULE PO SCH ×2 (05:29→10:06)
[2017-06-04] MEDS: GABAPENTIN 100 MG CAPSULE (FP) PO SCH (05:29)
[2017-06-04] MEDS: ALBUTEROL SO4 18 GM HFA INHALER IH PRN (06:19)
[2017-06-04] MEDS: AMOX TR/POT CLAV 875MG/125MG TABLETS (FP) PO SCH (07:25)
[2017-06-04] MEDS: hydrOXYzine PAMOATE 50 MG CAPSULE (FP) PO PRN (07:55)
[2017-06-04 09:48] VITALS: BP 142/84; PULSE 100; TEMP 97.3
[2017-06-04] MEDS: PANTOPRAZOLE 20 MG TABLET (FP) PO SCH (10:06)
[2017-06-04] MEDS: SERTRALINE HCL 50 MG TABLET (FP) PO SCH (10:06)
[2017-06-04] MEDS: PRENATAL VITAMINS W/ FOLIC ACID TABLET (FP) PO SCH (10:06)
[2017-06-04] MEDS: POTASSIUM CHLORIDE ORAL LIQUID 20 MEQ/15 ML PO SCH (10:06)
[2017-06-04] MEDS: BUDESONIDE/FORMETEROL FUMARATE 80/4.5 mcg INHALER IH SCH (10:06)
[2017-06-04] MEDS: predniSONE 20 MG TABLET (UD) PO SCH (10:06)
[2017-06-04] MEDS: FERROUS SO4 325 MG TABLET (FP) PO SCH (10:06)
[2017-06-04] MEDS: HYDROCORTISONE 2.5% TOPICAL CREAM 30 GM TUBE TP SCH (10:06)
--- NOTE | 2017-06-04 10:16 | PN ---
[facility] Progress Note Note: Psychiatry Attending's follow-up note : Chart reviewed. Case discussed with psychiatric technician assistant Moris. Met with patient for assessment of mental status. Mr Sen appears well rested,comfortable and relaxed. " I am feeling much better.I want to go back to VIP program." Patient exhibits clear sensorium and adequate impulse control. Remarkably improved judgment. Not psychotic or manic. Encouraged to complete detox protocol. Still declines to reconsider his decision to leave. Reasons offered : bills to address + personal issues that warrant his immediate attention. The patient is observed as neatly groomed,pleasant and cognitively sound. Determined to transition to his outpatient VIP program. Noted as a good historian. Mr Sen is domiciled,independent and connected to services. Ambulatory,conversant,future-oriented,appropriate and reliable. Mental status is stable.Patient is not a danger to self or others. Fully capable of making decisions pertinent to his medical welfare. Discussed with the medical HOME HEALTH TRAVEL PT Brayan : medically cleared. Constant Observation discontinued.
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
--- NOTE | 2017-06-04 10:55 | PN ---
Psychiatric Progress Note Vital Signs: Vital Signs Period Temp Pulse Resp BP Sys/Godfrey Pulse Ox Last 24 Hr 95.7 F-97.3 F 86-102 16-19 123-155/71-92 Date of Session: 06/04/17 Chief Complaint:: "I'm ready to go home. I feel much better." HPI: Pt. admitted to for alcohol dependence. Pt. placed on observation 1:1 on 06/03/2017 for attempting to elope despite exhibiting signs of acute alcohol withdrawal. ROS: C/O left shoulder soreness. Current Medications: Active Medications Generic Name Dose Route Start Last Admin Trade Name Freq PRN Reason Stop Dose Admin Acetaminophen 650 mg 06/01/17 13:12 06/02/17 17:10 Tylenol - PO 650 mg Q4H PRN Administration FEVER Al Hydroxide/Mg Hydroxide 30 ml 06/01/17 13:12 06/02/17 00:59 Mylanta Oral Suspension - PO 30 ml Q6H PRN Administration DYSPEPSIA Albuterol Sulfate 2 puff 06/01/17 13:09 06/04/17 06:19 Ventolin Hfa Inhaler - IH 2 puff Q4H PRN Administration ASTHMA Albuterol/Ipratropium 1 amp 06/02/17 12:00 06/04/17 06:25 Duoneb - NEB Not Given QIDR BLAYNE Amoxicillin/Clavulanate Potassium 1 tab 06/02/17 17:30 06/04/17 07:25 Augmentin - 875mg Tablet PO 1 tab BID@0800,1730 BLAYNE Administration Atorvastatin Calcium 10 mg 06/01/17 22:00 06/03/17 22:36 Lipitor - PO 10 mg HS BLAYNE Administration Budesonide/Formoterol Fumarate 2 puff 06/02/17 10:00 06/04/17 10:06 Symbicort 80/4.5mcg - IH 2 puff BID BLAYNE Administration Chlordiazepoxide HCl 15 mg 06/03/17 17:00 06/04/17 10:06 Librium - PO 06/04/17 11:01 15 mg [id number] BLAYNE Administration Chlordiazepoxide HCl 25 mg 06/01/17 13:12 06/02/17 21:38 Librium - PO 06/04/17 13:11 25 mg Q4H PRN Administration WITHDRAWAL(CONT SUBST) Chlordiazepoxide HCl 10 mg 06/04/17 17:00 Librium - PO 06/05/17 11:01 [id number] BLAYNE Diphenoxylate HCl/Atropine 1 combo 06/03/17 10:09 Lomotil - PO 06/06/17 10:08 Q8H PRN DIARRHEA Eucalyptus/Menthol/Phenol/Sorbitol 1 each 06/01/17 13:12 Cepastat Lozenge - MM Q4H PRN SORE THROAT Ferrous Sulfate 325 mg 06/03/17 10:00 06/04/17 10:06 Feosol - PO 325 mg DAILY BLAYNE Administration Gabapentin 100 mg 06/01/17 14:00 06/04/17 05:29 Neurontin - PO 100 mg TID BLAYNE Administration Guaifenesin 10 ml 06/01/17 13:12 Robitussin Dm - PO Q6H PRN COUGH Hydrocortisone 1 applic 06/01/17 22:00 06/04/17 10:06 Anusol 2.5% Hc Cream - TP 1 applic BID BLAYNE Administration Hydroxyzine Pamoate 50 mg 06/01/17 13:12 06/04/17 07:55 Vistaril - PO 50 mg Q4H PRN Administration AGITATION Ibuprofen 400 mg 06/01/17 13:12 06/02/17 22:16 Motrin - PO 400 mg Q6H PRN Administration PAIN LEVEL 4-6 Magnesium Citrate 300 ml 06/01/17 13:12 Citroma - PO Q48H PRN CONSTIPATION Magnesium Hydroxide 30 ml 06/01/17 13:12 Milk Of Magnesia - PO DAILY PRN CONSTIPATION Methadone HCl 20 mg 06/03/17 06:00 06/04/17 05:29 Dolophine - PO 06/09/17 05:59 20 mg DAILY@0600 BLAYNE Administration Montelukast Sodium 10 mg 06/02/17 22:00 06/03/17 22:36 Singulair - PO 10 mg HS BLAYNE Administration Pantoprazole Sodium 20 mg 06/01/17 15:00 06/04/17 10:06 Protonix - PO 20 mg DAILY BLAYNE Administration Potassium Chloride 20 meq 06/02/17 22:00 06/04/17 10:06 Potassium Chloride Oral Liquid PO 20 meq BID BLAYNE Administration Prednisone 20 mg 06/03/17 11:00 06/04/17 10:06 Deltasone - PO 20 mg DAILY BLAYNE Administration Multivit/Folic Acid/Iron 1 tab 06/02/17 10:00 06/04/17 10:06 Vitamins (Sjr) - PO 1 tab DAILY BLAYNE Administration Pseudoephedrine/Triprolidine 1 combo 06/01/17 13:12 Actifed - PO TID PRN NASAL CONGESTION Quetiapine Fumarate 25 mg 06/02/17 22:00 06/03/17 22:41 Seroquel - PO 25 mg HS BLAYNE Administration Sertraline HCl 50 mg 06/02/17 10:00 06/04/17 10:06 Zoloft - PO 50 mg DAILY BLAYNE Administration Thiamine HCl 100 mg 06/01/17 22:00 06/03/17 22:36 Vitamin B1 - PO 100 mg HS BLAYNE Administration Medication(s) Change(s): No Current Side Effect: No Lab tests ordered: No Lab tests reviewed: Yes Provider note:: Called by staff to reevaluate patient who is requesting to leave but was placed on observation 1:1 for safety seconday to alcohol withdrawal. Chart reviewed. Lan/Wan Engineer met with patient concerning his plan after discharge. Pt. presents as alert, oriented, and cooperative. Case discussed with Medical Nurse pracitioner Adele. Pt. has received treatment for alcohol withdrawal and medical condition is stable. Pt insist that he is leaving A and will go visit his physician at the [facility] treatment in the [place]. Pt. denies h/o suicide attempt. Pt. denies suicidal and homicidal ideation. Observation 1:1 to be discontinued. Total face to face time:: 35 Mental Status Exam - Mental Status Exam Alert and Oriented to: Time, Place, Person Cognitive Function: Good Patient Appearance: Well Groomed Mood: Anxious Affect: Mood Congruent Patient Behavior: Talkative, Cooperative (Slightly irritable but cooperative and able to follow redirection) Speech Pattern: Appropriate Voice Loudness: Moderately Soft/Quiet Thought Process: Goal Oriented Thought Disorder: Not Present Hallucinations: Denies Suicidal Ideation: Denies Homicidal Ideation: Denies Insight/Judgement: Poor Sleep: Fair Appetite: Fair Muscle strength/Tone: Normal Gait/Station: Normal Psychiatric Treatment Plan - Problem List (1) Alcohol dependence with uncomplicated withdrawal Comment: . (2) Bipolar disorder Comment: . (3) Cannabis dependence Comment: .
--- NOTE | 2017-06-04 11:42 | DS ---
[facility] Detox Discharge Summary Admission Date: 06/01/17 Discharge Date: 06/04/17 - History Present History: Alcohol Dependence, Cannabis Dependence Additional Comments: PT DECLINED TO COMPLETE DETOX AND WANTS TO GO HOME. ALERT O X 3. NAD. PT INSTRUCTED TO FOLLOW UP WITH PMD AT [facility] [address] FOR MEDICAL MANAGEMENT NEEDED. Pertinent Past History: SEE DX BELOW - Physical Exam Results Vital Signs: Vital Signs Temperature 97.3 F L 06/04/17 09:47 Pulse Rate 100 H 06/04/17 09:47 Respiratory Rate 19 06/04/17 09:47 Blood Pressure 142/84 06/04/17 09:47 O2 Sat by Pulse Oximetry (%) Pertinent Admission Physical Exam Findings: WITHDRAWAL SX Laboratory Last Values WBC 5.2 K/mm3 (4.0-10.0) 06/02/17 07:00 RBC 3.39 M/mm3 (4.00-5.60) L 06/02/17 07:00 Hgb 10.8 GM/dL (11.7-16.9) L D 06/02/17 07:00 Hct 31.9 % (35.4-49) L D 06/02/17 07:00 MCV 94.2 fl (80-96) 06/02/17 07:00 MCH 32.0 pg (25.7-33.7) 06/02/17 07:00 MCHC 33.9 g/dl (32.0-35.9) 06/02/17 07:00 RDW 14.5 % (11.9-15.9) 06/02/17 07:00 Plt Count 328 K/MM3 (134-434) 06/02/17 07:00 MPV 6.8 fl (7.5-11.1) L D 06/02/17 07:00 Sodium 137 mmol/L (136-145) 06/02/17 07:00 Potassium 3.3 mmol/L (3.5-5.1) L 06/02/17 07:00 Chloride 98 mmol/L (98-107) 06/02/17 07:00 Carbon Dioxide 29 mmol/L (21-32) 06/02/17 07:00 Anion Gap 10 (8-16) 06/02/17 07:00 BUN 10 mg/dL (7-18) D 06/02/17 07:00 Creatinine 0.9 mg/dL (0.7-1.3) 06/02/17 07:00 Creat Clearance w eGFR > 60 (>60) 06/02/17 07:00 Random Glucose 104 mg/dL (74-106) D 06/02/17 07:00 Calcium 7.5 mg/dL (8.5-10.1) L 06/02/17 07:00 Total Bilirubin 0.6 mg/dL (0.2-1.0) 06/02/17 07:00 AST 142 U/L (15-37) H D 06/02/17 07:00 ALT 84 U/L (12-78) H D 06/02/17 07:00 Alkaline Phosphatase 111 U/L (45-117) 06/02/17 07:00 Total Protein 5.6 g/dl (6.4-8.2) L 06/02/17 07:00 Albumin 2.8 g/dl (3.4-5.0) L 06/02/17 07:00 Urine Color Yellow 06/01/17 16:00 Urine Appearance Turbid 06/01/17 16:00 Urine pH 5.0 (5.0-8.0) D 06/01/17 16:00 Ur Specific [place] 1.023 (1.001-1.035) 06/01/17 16:00 Urine Protein 1+ (NEGATIVE) H 06/01/17 16:00 Urine Glucose (UA) Negative (NEGATIVE) 06/01/17 16:00 Urine Ketones Negative (NEGATIVE) 06/01/17 16:00 Urine Blood Negative (NEGATIVE) 06/01/17 16:00 Urine Nitrite Negative (NEGATIVE) 06/01/17 16:00 Urine Bilirubin Negative (NEGATIVE) 06/01/17 16:00 Urine Urobilinogen Negative mg/dL (0.2-1.0) 06/01/17 16:00 Ur Leukocyte Esterase Negative (NEGATIVE) 06/01/17 16:00 Urine WBC (Auto) 75 /hpf (3-5) 06/01/17 16:00 Urine RBC (Auto) 6 /hpf (0-3) 06/01/17 16:00 Urine Mucus Moderate 06/01/17 16:00 RPR Titer Nonreactive (NONREACTIVE) 06/02/17 07:00 PT DECLINED REPEAT LABS AND UA. STATED HE WILL FOLLOW UP WITH HIS PMD. RESULTS GIVEN TO PT FOR FOLLOW UP. RX FOR AUGMENTIN SENT TO PHARMACY AND INSTRUCTED TO COMPLETE DOSES. - Treatment Hospital Course: Discharged Condition Good - Medication Discharge Medications: Ambulatory Orders Pravastatin Sodium [Pravachol -] 40 mg PO HS 08/13/16 Albuterol Sulfate Inhaler - [Ventolin HFA Inhaler -] 2 inh PO Q4H PRN 01/17/17 Famotidine [Pepcid -] 20 mg PO DAILY 01/17/17 Ferrous Sulfate [Feosol] 325 mg PO WEEKLY 01/17/17 Gabapentin [Neurontin -] 100 mg PO Q8H 01/17/17 Phenyleph/Pramoxin/Glycr/W.pet [Preparation H Cream] 26 gm RC BID 01/17/17 Sennosides [Senokot] 17.2 mg PO DAILY 01/17/17 Quetiapine Fumarate [Seroquel -] 25 mg PO HS #30 tablet 01/18/17 Sertraline HCl [Zoloft -] 50 mg PO DAILY #30 tablet 01/18/17 Budesonide/Formeterol Fumarate [SYMBICORT 80/4.5mcg -] 2 puff IH BID 06/02/17 Montelukast Na [Singulair -] 10 mg PO HS 06/02/17 Amox-Tr/K Cl [Augmentin 875-125mg Tablet -] 1 tab PO BID@0800,1730 #10 tablet Amoxicillin/Potassium Clav [Augmentin 875-125 Tablet] 1 each PO BID #10 tablet 06/04/17 - Diagnosis (1) Weight loss Status: Acute (2) Asthma Status: Chronic Qualifiers: Asthma severity: moderate Asthma complication type: with status asthmaticus (3) GERD (gastroesophageal reflux disease) Status: Chronic Qualifiers: Esophagitis presence: without esophagitis Qualified Code(s): K21.9 - Gastro -esophageal reflux disease without esophagitis (4) History of chronic pain Status: Chronic (5) Hypercholesterolemia Status: Chronic (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
[2017-06-04] MEDS ORDERED: chlordiazePOXIDE HCL 10 MG CAPSULE PO SCH (17:00)
== END 2017-06-04 11:45 | disposition left against medical advice (07) | DRG 770 ==
LOC: YASAS 10:31 → Y3N 13:15
PROVIDERS: ADMIT Internal Medicine; ATTEND Internal Medicine
PROC: HZ2ZZZZ Detoxification Services for Substance Abuse Treatment (ICD-10-PCS; principal; 2017-06-01)
DX: F10.230 Alcohol dependence with withdrawal, uncomplicated (principal); F11.20 Opioid dependence, uncomplicated; F12.20 Cannabis dependence, uncomplicated; F31.9 Bipolar disorder, unspecified; F19.24 Other psychoactive substance dependence with psychoactive substance-induced mood disorder; F34.1 Dysthymic disorder; G47.00 Insomnia, unspecified; J45.22 Mild intermittent asthma with status asthmaticus; K21.9 Gastro-esophageal reflux disease without esophagitis; K64.9 Unspecified hemorrhoids; E78.00 Pure hypercholesterolemia, unspecified; E86.0 Dehydration; E87.6 Hypokalemia; J20.9 Acute bronchitis, unspecified; R19.7 Diarrhea, unspecified; G40.909 Epilepsy, unspecified, not intractable, without status epilepticus; K59.01 Slow transit constipation; Z91.012 Allergy to eggs; Z87.898 Personal history of other specified conditions; S42.002D Fracture of unspecified part of left clavicle, subsequent encounter for fracture with routine healing; T74.21XD Adult sexual abuse, confirmed, subsequent encounter
CPT/HCPCS: 36415; 71045-TC; 80053; 81003; 81015; 85027; 86593; 93005; 93010; 94640

== ENCOUNTER 2017-07-11 09:07 | Inpatient (IN) | payer OTHER ==
[2017-07-11 10:00] VITALS: BMI 21.7
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
[2017-07-11] MEDS ORDERED: MENTHOL/PHENOL 1 EACH UD MM PRN (12:57)
[2017-07-11] MEDS ORDERED: guaiFENesin/D-METHORPHAN HB 10 ML UNIT-DOSE CUPS PO PRN (12:57)
[2017-07-11] MEDS ORDERED: MAG HYDROX/AL HYDROX/SIMETH 30 ML UNIT-DOSE CUP PO PRN (12:57)
[2017-07-11] MEDS ORDERED: IBUPROFEN 400 MG TABLET (FP) PO PRN (12:57)
[2017-07-11] MEDS ORDERED: MAGNESIUM HYDROX 2400MG/30ML ORAL SUSPENSION 30 ML CUP PO PRN (12:57)
[2017-07-11] MEDS ORDERED: MAGNESIUM CITRATE 300 ML BOTTLE PO PRN (12:57)
[2017-07-11] MEDS ORDERED: P-EPHED 60MG/TRIPROLIDI 2.5MG TABLET PO PRN (12:57)
[2017-07-11] MEDS ORDERED: ALBUTEROL SO4 18 GM HFA INHALER IH PRN (12:59)
[2017-07-11] MEDS ORDERED: chlordiazePOXIDE HCL 25 MG CAPSULE PO ONE (13:05)
[2017-07-11] MEDS: BACITRACIN 0.9 GM PACKET TP SCH ×2 (13:53→22:45)
[2017-07-11] MEDS: LOPERAMIDE HCL 2 MG CAPSULE PO PRN (14:58)
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
[2017-07-11] MEDS: GEMFIBROZIL 600 MG TABLET (FP) PO SCH (17:11)
[2017-07-11] MEDS: chlordiazePOXIDE HCL 25 MG CAPSULE PO SCH ×2 (17:11→22:45)
[2017-07-11] MEDS: chlordiazePOXIDE HCL 25 MG CAPSULE PO PRN (19:23)
[2017-07-11 22:37] LABS: URINE APPEARANCE TURBID; URINE BILIRUBIN NEGATIVE (NEGATIVE); URINE BLOOD 1+ (NEGATIVE); URINE GLUCOSE (UA) NEGATIVE (NEGATIVE); URINE KETONE TRACE (NEGATIVE); URINE LEUK ESTERASE NEGATIVE (NEGATIVE); URINE NITRITE NEGATIVE (NEGATIVE); URINE PROTEIN NEGATIVE (NEGATIVE); URINE UROBILINOGEN NEGATIVE mg/dL (0.2-1.0)
[2017-07-11 22:43] LABS: URINE COLOR AMBER
[2017-07-11] MEDS: BUDESONIDE/FORMETEROL FUMARATE 80/4.5 mcg INHALER IH SCH (22:45)
[2017-07-11] MEDS: QUEtiapine FUMARATE 25 MG TABLET (FP) PO SCH (22:46)
[2017-07-11] MEDS: MONTELUKAST NA 10 MG TABLET PO SCH (22:46)
[2017-07-11] MEDS: THIAMINE HCL 100 MG TABLET (FP) PO SCH (22:46)
[2017-07-11 23:11] LABS: URINE BACTERIA FEW /hpf (NONE SEEN); URINE MUCUS MANY
[2017-07-11 23:12] LABS: CALCIUM OXALATE CRYSTALS FEW /hpf (NONE SEEN)
[2017-07-12] MEDS: chlordiazePOXIDE HCL 25 MG CAPSULE PO SCH ×4 (05:08→22:08)
[2017-07-12] MEDS: GEMFIBROZIL 600 MG TABLET (FP) PO SCH ×2 (07:28→17:31)
[2017-07-12] MEDS: BUDESONIDE/FORMETEROL FUMARATE 80/4.5 mcg INHALER IH SCH ×2 (10:30→22:55)
[2017-07-12] MEDS: BACITRACIN 0.9 GM PACKET TP SCH ×2 (10:30→22:08)
[2017-07-12] MEDS: NICOTINE 21 MG/24 HOURS TOPICAL PATCH TD SCH (10:30)
[2017-07-12] MEDS: PRENATAL VITAMINS W/ FOLIC ACID TABLET (FP) PO SCH (10:30)
[2017-07-12] MEDS: SERTRALINE HCL 50 MG TABLET (FP) PO SCH (10:30)
[2017-07-12 10:53] LABS: HEMATOCRIT 35.8 % (35.4-49); HEMOGLOBIN 12.3 GM/dL (11.7-16.9); MCHC 34.5 g/dl (32.0-35.9); MEAN CELL VOLUME 98.7 fl (80-96); MEAN PLT VOLUME 7.2 fl (7.5-11.1); PLATELET COUNT 315 K/MM3 (134-434); RBC 3.63 M/mm3 (4.00-5.60); RDW 15.6 % (11.9-15.9); WHITE BLOOD COUNT 4.2 K/mm3 (4.0-10.0)
--- NOTE | 2017-07-12 11:13 | PN ---
S CIWA - CIWA Score Nausea/Vomitin Muscle Tremors: 3 Anxiety: 3 Agitation: 3 Paroxysmal Sweats: 1-Minimal Palms Moist Orientation: 0-Oriented Tacttile Disturbances: 1-Very Mild Itch/Numbness Auditory Disturbances: 1-Very Mild Visual Disturbances: 0-None Headache: 2-Mild CIWA-Ar Total Score: 17 [facility] Progress Note (SOAP) Subjective: alert,irritable,tremor,anxious,pain in the body Objective: 07/12/17 11:10 Vital Signs Temperature 97.9 F 07/12/17 04:00 Pulse Rate 90 07/12/17 04:00 Respiratory Rate 18 07/12/17 04:00 Blood Pressure 125/79 07/12/17 04:00 O2 Sat by Pulse Oximetry (%) ekg nsr prolong qt 390/484 Laboratory Last Values Urine Color Arti 07/11/17 21:30 Urine Appearance Turbid 07/11/17 21:30 Urine pH 6.0 (5.0-8.0) 07/11/17 21:30 Ur Specific [place] 1.020 (1.001-1.035) 07/11/17 21:30 Urine Protein Negative (NEGATIVE) 07/11/17 21:30 Urine Glucose (UA) Negative (NEGATIVE) 07/11/17 21:30 Urine Ketones Trace (NEGATIVE) H 07/11/17 21:30 Urine Blood 1+ (NEGATIVE) H 07/11/17 21:30 Urine Nitrite Negative (NEGATIVE) 07/11/17 21:30 Urine Bilirubin Negative (NEGATIVE) 07/11/17 21:30 Urine Urobilinogen Negative mg/dL (0.2-1.0) 07/11/17 21:30 Ur Leukocyte Esterase Negative (NEGATIVE) 07/11/17 21:30 Urine WBC (Auto) None seen /hpf (3-5) 07/11/17 21:30 Urine RBC (Auto) None seen /hpf (0-3) 07/11/17 21:30 Calcium Oxalate Crystal Few /hpf (NONE SEEN) 07/11/17 21:30 Urine Bacteria Few /hpf (NONE SEEN) 07/11/17 21:30 Urine Mucus Many 07/11/17 21:30 07/12/17 11:12 labs pending Assessment: 07/12/17 11:12 withdrawal symptom Plan: continue detox
[2017-07-12 11:18] LABS: CHLORIDE 98 mmol/L (98-107); POTASSIUM 3.5 mmol/L (3.5-5.1); SODIUM 140 mmol/L (136-145)
[2017-07-12] MEDS: ACETAMINOPHEN 325 MG TABLET (FP) PO PRN ×2 (11:23→17:29)
--- NOTE | 2017-07-12 11:23 | PN ---
[facility] Progress Note Note: patient has un witness fall in the room no head injury complained of pain in the right rib gages old abrasion of right facial area no neck pain lung clear pain in the right ribs cage with tenderness on palpation no abdominal pain no calf tenderness bp 136/74,p96,r20,t98.8 impression history of fall alcohol dependence abrasion of right face r/o fx of right ribs hyperlipidemia treatment initiate fall protocol 1 er evaluation and treatment soke with dr tiana Connor in er at [facility] to be transported by [facility] fall precaution
[2017-07-12 11:25] LABS: ALBUMIN 3.9 g/dl (3.4-5.0); ALK PHOS 180 U/L (45-117); ANION GAP 15 (8-16); BILIRUBIN,TOTAL 1.7 mg/dL (0.2-1.0); BLOOD UREA NITROGEN 10 mg/dL (7-18); CALCIUM 9.2 mg/dL (8.5-10.1); CO2 27 mmol/L (21-32); CREATININE 0.9 mg/dL (0.7-1.3); GLUCOSE,RANDOM 176 mg/dL (74-106); SGOT/AST 38 U/L (15-37); SGPT/ALT 40 U/L (12-78); TOT PROT 7.1 g/dl (6.4-8.2)
--- NOTE | 2017-07-12 11:57 | EKG ---
Test Reason : Blood Pressure : / mmHG Vent. Rate : 093 BPM Atrial Rate : 093 BPM P-R Int : 116 ms QRS Dur : 084 ms QT Int : 390 ms P-R-T Axes : 034 046 058 degrees QTc Int : 484 ms NORMAL SINUS RHYTHM PROLONGED QT ABNORMAL ECG WHEN COMPARED WITH ECG OF 01-JUN-2017 15:43, NO SIGNIFICANT CHANGE WAS FOUND Confirmed by MD ANTONINA, ARPAN ([id number]) on 07/12/2017 11:57:40 AM Referred By: Confirmed By:ARPAN SARKAR MD
[2017-07-12] MEDS: LOPERAMIDE HCL 2 MG CAPSULE PO PRN (18:41)
[2017-07-12] MEDS: chlordiazePOXIDE HCL 25 MG CAPSULE PO PRN (18:42)
[2017-07-12] MEDS: hydrOXYzine PAMOATE 50 MG CAPSULE (FP) PO PRN (20:15)
[2017-07-12] MEDS: QUEtiapine FUMARATE 25 MG TABLET (FP) PO SCH (22:08)
[2017-07-12] MEDS: MONTELUKAST NA 10 MG TABLET PO SCH (22:08)
[2017-07-12] MEDS: THIAMINE HCL 100 MG TABLET (FP) PO SCH (22:08)
[2017-07-13] MEDS: hydrOXYzine PAMOATE 50 MG CAPSULE (FP) PO PRN (02:49)
[2017-07-13] MEDS: chlordiazePOXIDE HCL 25 MG CAPSULE PO SCH (05:08)
[2017-07-13] MEDS: ACETAMINOPHEN 325 MG TABLET (FP) PO PRN (05:51)
[2017-07-13 07:44] VITALS: TEMP 96.6
[2017-07-13] MEDS: GEMFIBROZIL 600 MG TABLET (FP) PO SCH (07:44)
[2017-07-13] MEDS: BUDESONIDE/FORMETEROL FUMARATE 80/4.5 mcg INHALER IH SCH (09:36)
[2017-07-13] MEDS: BACITRACIN 0.9 GM PACKET TP SCH (09:36)
[2017-07-13] MEDS: PRENATAL VITAMINS W/ FOLIC ACID TABLET (FP) PO SCH (09:36)
[2017-07-13] MEDS: SERTRALINE HCL 50 MG TABLET (FP) PO SCH (09:36)
[2017-07-13] MEDS: NICOTINE 21 MG/24 HOURS TOPICAL PATCH TD SCH (09:38)
--- NOTE | 2017-07-13 09:43 | DS ---
[facility] Detox Discharge Summary Admission Date: 07/11/17 - History Present History: Alcohol Dependence Additional Comments: patient insists to terminate the detox regimen patient is alert oriented x 3 steady gait coherent understanding the consequences and severity of alcohol withdrawal patient wants to return to community support group that he always go to patient wants to work with his sponsor and continue his recovery patient rejects early discharge early completion of the regimen - Physical Exam Results Vital Signs: Vital Signs Temperature 96.6 F L 07/13/17 07:44 Pulse Rate 91 H 07/13/17 07:44 Respiratory Rate 19 07/13/17 07:44 Blood Pressure 119/71 07/13/17 07:44 O2 Sat by Pulse Oximetry (%) Pertinent Admission Physical Exam Findings: withdrawal sx Laboratory Last Values WBC 4.2 K/mm3 (4.0-10.0) 07/12/17 05:40 RBC 3.63 M/mm3 (4.00-5.60) L 07/12/17 05:40 Hgb 12.3 GM/dL (11.7-16.9) D 07/12/17 05:40 Hct 35.8 % (35.4-49) 07/12/17 05:40 MCV 98.7 fl (80-96) H 07/12/17 05:40 MCH 34.0 pg (25.7-33.7) H 07/12/17 05:40 MCHC 34.5 g/dl (32.0-35.9) 07/12/17 05:40 RDW 15.6 % (11.9-15.9) 07/12/17 05:40 Plt Count 315 K/MM3 (134-434) 07/12/17 05:40 MPV 7.2 fl (7.5-11.1) L 07/12/17 05:40 Sodium 140 mmol/L (136-145) 07/12/17 05:40 Potassium 3.5 mmol/L (3.5-5.1) 07/12/17 05:40 Chloride 98 mmol/L (98-107) 07/12/17 05:40 Carbon Dioxide 27 mmol/L (21-32) 07/12/17 05:40 Anion Gap 15 (8-16) 07/12/17 05:40 BUN 10 mg/dL (7-18) 07/12/17 05:40 Creatinine 0.9 mg/dL (0.7-1.3) 07/12/17 05:40 Creat Clearance w eGFR > 60 (>60) 07/12/17 05:40 Random Glucose 176 mg/dL (74-106) H D 07/12/17 05:40 Calcium 9.2 mg/dL (8.5-10.1) D 07/12/17 05:40 Total Bilirubin 1.7 mg/dL (0.2-1.0) H D 07/12/17 05:40 AST 38 U/L (15-37) H D 07/12/17 05:40 ALT 40 U/L (12-78) D 07/12/17 05:40 Alkaline Phosphatase 180 U/L (45-117) H D 07/12/17 05:40 Total Protein 7.1 g/dl (6.4-8.2) D 07/12/17 05:40 Albumin 3.9 g/dl (3.4-5.0) D 07/12/17 05:40 Urine Color Arti 07/11/17 21:30 Urine Appearance Turbid 07/11/17 21:30 Urine pH 6.0 (5.0-8.0) 07/11/17 21:30 Ur Specific [place] 1.020 (1.001-1.035) 07/11/17 21:30 Urine Protein Negative (NEGATIVE) 07/11/17 21:30 Urine Glucose (UA) Negative (NEGATIVE) 07/11/17 21:30 Urine Ketones Trace (NEGATIVE) H 07/11/17 21:30 Urine Blood 1+ (NEGATIVE) H 07/11/17 21:30 Urine Nitrite Negative (NEGATIVE) 07/11/17 21:30 Urine Bilirubin Negative (NEGATIVE) 07/11/17 21:30 Urine Urobilinogen Negative mg/dL (0.2-1.0) 07/11/17 21:30 Ur Leukocyte Esterase Negative (NEGATIVE) 07/11/17 21:30 Urine WBC (Auto) None seen /hpf (3-5) 07/11/17 21:30 Urine RBC (Auto) None seen /hpf (0-3) 07/11/17 21:30 Calcium Oxalate Crystal Few /hpf (NONE SEEN) 07/11/17 21:30 Urine Bacteria Few /hpf (NONE SEEN) 07/11/17 21:30 Urine Mucus Many 07/11/17 21:30 lab noted - Treatment Hospital Course: Detox Protocol Followed, Responded well - Medication Discharge Medications: Ambulatory Orders Albuterol Sulfate Inhaler - [Ventolin HFA Inhaler -] 2 inh PO Q4H PRN 01/17/17 Famotidine [Pepcid -] 20 mg PO DAILY 01/17/17 Budesonide/Formeterol Fumarate [SYMBICORT 80/4.5mcg -] 2 puff IH BID 06/02/17 Montelukast Na [Singulair -] 10 mg PO HS 06/02/17 Gemfibrozil [Lopid -] 600 mg PO BID 07/11/17 Quetiapine Fumarate [Seroquel -] 25 mg PO HS #30 tablet 07/13/17 Sertraline HCl [Zoloft -] 50 mg PO DAILY #30 tablet 07/13/17 - Diagnosis (1) Substance induced mood disorder Current Visit: Yes Status: Suspected (2) Asthma Current Visit: Yes Status: Chronic Qualifiers: Asthma severity: moderate Asthma complication type: with status asthmaticus (3) Hypercholesterolemia Current Visit: Yes Status: Chronic (4) Alcohol dependence with uncomplicated withdrawal Current Visit: Yes Status: Acute (5) GERD (gastroesophageal reflux disease) Current Visit: Yes Status: Chronic Qualifiers: Esophagitis presence: without esophagitis Qualified Code(s): K21.9 - Gastro -esophageal reflux disease without esophagitis - AMA Did Patient Leave Against Medical Advice: Yes
[2017-07-13 10:34] VITALS: BP 122/73; PULSE 88
[2017-07-13] MEDS ORDERED: chlordiazePOXIDE 5 MG CAPSULE PO SCH (17:00)
[2017-07-14] MEDS ORDERED: chlordiazePOXIDE HCL 10 MG CAPSULE PO SCH (17:00)
== END 2017-07-13 09:37 | disposition left against medical advice (07) | DRG 770 ==
LOC: YASAS 09:07 → Y6N 12:53
PROVIDERS: ADMIT Internal Medicine; ATTEND Internal Medicine
PROC: HZ2ZZZZ Detoxification Services for Substance Abuse Treatment (ICD-10-PCS; principal; 2017-07-11)
DX: F10.230 Alcohol dependence with withdrawal, uncomplicated (principal); F17.210 Nicotine dependence, cigarettes, uncomplicated; F19.24 Other psychoactive substance dependence with psychoactive substance-induced mood disorder; J45.909 Unspecified asthma, uncomplicated; E78.00 Pure hypercholesterolemia, unspecified; K21.9 Gastro-esophageal reflux disease without esophagitis; S00.81XA Abrasion of other part of head, initial encounter; S20.311A Abrasion of right front wall of thorax, initial encounter; W19.XXXA Unspecified fall, initial encounter; Y93.9 Activity, unspecified; Y92.239 Unspecified place in hospital as the place of occurrence of the external cause; Z91.012 Allergy to eggs; Z86.69 Personal history of other diseases of the nervous system and sense organs; Z91.410 Personal history of adult physical and sexual abuse; Z87.898 Personal history of other specified conditions
CPT/HCPCS: 36415; 80053; 81003; 81015; 85027; 86593; 93005; 93010

== ENCOUNTER 2017-07-12 11:54 | Emergency (ER) | payer OTHER ==
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
--- NOTE | 2017-07-12 12:10 | PDOC ---
Attending Attestation - Resident Resident Name: Francisco Regalado - HPI HPI: 07/13/17 09:49 Pt presents to the ED after falling from bed at [facility] today. + LOC. Complaining of headache and pain in his posterior neck . Denies other injuries. Ambulatory in the ED. - Physicial Exam PE: 07/13/17 09:54 Agree with resident exam. Patient is awake, alert and oriented x 3. He is ambulatory in the ED with normal gait. No cervical spine tenderness on my exam. Abdomen is non tender on my exam. - Medical Decision Making 07/13/17 09:55 Pt presents to the ED after fall from bed with LOC, as per patient. Ct head and C spine performed to rule out intracranial or cervical spinal injury, and are negative. Will discharge back to [facility].
[2017-07-12] MEDS ORDERED: chlordiazePOXIDE HCL 25 MG CAPSULE PO ONE (12:22)
[2017-07-12 12:30] VITALS: TEMP 97.6; BMI 21.2
[2017-07-12] MEDS ORDERED: chlordiazePOXIDE HCL 25 MG CAPSULE ONE (12:51)
[2017-07-12] MEDS ORDERED: IBUPROFEN 400 MG TABLET (FP) PO ONE ×2 (14:51→14:52)
[2017-07-12 16:49] VITALS: BP 138/62; PULSE 70
== END 2017-07-12 16:48 | disposition home or self-care (01) ==
LOC: JER 11:54
DX: F10.230 Alcohol dependence with withdrawal, uncomplicated (principal); W18.39XA Other fall on same level, initial encounter; Y93.89 Activity, other specified; Y92.9 Unspecified place or not applicable; J45.909 Unspecified asthma, uncomplicated; E78.00 Pure hypercholesterolemia, unspecified; F31.9 Bipolar disorder, unspecified
CPT/HCPCS: 70450-TC; 72125-TC; 99283-25